=== PATIENT | female | born 1945 | race Caucasian/White ===

== ENCOUNTER 2025-01-17 01:55 | Inpatient (IN) | payer MEDICARE, SELFPAY ==
[2025-01-16 18:56] VITALS: BP 122/77
[2025-01-16 19:28] LABS: Hematocrit 37.5 % (37.0-47.0); Hemoglobin 11.9 g/dL (12.0-16.0); Mean Corp Hgb Conc. 31.7 g/dL (33.0-37.0); Mean Corpuscular Volume 88.4 fL (81.0-99.0); Nucleated Red Blood Cells % 0 %; Platelet Count 279 10^3/uL (130-400); Red Cell Dist. Width 15.0 % (11.5-14.5)
[2025-01-16 19:44] LABS: ALT (SGPT) 11 U/L (0-35); AST (SGOT) 15 U/L (14-36); Albumin 3.9 g/dl (3.5-5.0); Alkaline Phosphatase 109 U/L (38-126); Blood Urea Nitrogen 21 mg/dl (7-17); Calcium 9.6 mg/dl (8.4-10.2); Carbon Dioxide 26 mmol/L (22-30); Chloride 100 mmol/L (98-107); Glucose 154 mg/dl (70-99); Lipase 147 U/L (23-300); Potassium 4.5 mmol/L (3.5-5.1); Sodium 133 mmol/L (135-145); Total Protein 6.9 g/dl (6.3-8.2); eGFR 46.62
[2025-01-16 22:00] VITALS: BP 138/88
[2025-01-16] MEDS: MORPHINE SULFATE 4 MG IV (22:41)
[2025-01-16] MEDS: NSS 500 IV (22:41)
[2025-01-16] MEDS: ZOFRAN 4 MG IV (22:42)
[2025-01-16 22:50] LABS: COVID-19 Antigen Negative (Negative)
[2025-01-16 23:00] VITALS: BP 156/83
[2025-01-16 23:30] VITALS: BP 142/82
--- NOTE | 2025-01-16 23:41 | ED.GENMED ---
History of Present Illness
General
Chief Complaint: Weakness
Source: patient, records (Reviewed records from [facility]) and family
Exam Limitations: none
Time Seen by Provider: 01/16/25 22:04
Nursing documentation reviewed up to this point in time: agreed with
History of Present Illness
History of Present Illness:
79-year-old female with a past medical history of hypertension, hyperlipidemia, atrial fibrillation on Eliquis, distant history of gastric bypass surgery, prior history of cholecystectomy, prior prior history of breast cancer status postlumpectomy
who presents to the emergency department with her daughter for evaluation of abdominal pain. Symptoms have been ongoing it sounds like 4 weeks but worsening over the past 3 days. She has been in and out of the hospital over the past few weeks
since onset of her symptoms. To describe her symptoms today�she describes pain in the epigastrium radiates diffusely. Associated with nausea and multiple episodes of vomiting. Denies any diarrhea. She has had poor appetite. No fever or chills.
No urinary symptoms. Denies chest pain. Daughter is at bedside and helps provide some collateral history about her recent hospitalizations:
It sounds that she was initially hospitalized at [facility] after a syncopal event and at that time was found to have new onset atrial fibrillation and was started on metoprolol and Eliquis. About a week later (12/28) she presented
to [facility] with epigastric pain. At that time she had imaging initially there was question of gastric ulcer noted on CT but she was also noted to have abnormal LFTs. She underwent subsequent MRI which showed dilated bile ducts but
no choledocholithiasis, LFTs improved. Based on notes it sounds like the consensus was for her symptoms likely related to a passed biliary stone however she was also treated with PPI. She had a marginally elevated troponin during her initial
hospitalization that was felt to be nonischemic per cardiology review.
She subsequently returned with continued abdominal pain 01/03 3 days after her discharge. At that time her LFTs continue to improve, troponin remained marginally elevated and she underwent cardiac cath which showed no obstructive disease and it was
felt that symptoms were noncardiac. She was treated with PPI and sucralfate and was discharged from the hospital after 3 more days.
Daughter says that since returning home she has never had resolution of symptoms but increasing symptoms over the past 3 days prompted ER visit jose luis says that they are unhappy with the care at [facility] which prompted her to come to
[place] despite never having been to this hospital
Review of Systems
Review of Systems
All Other Systems: ROS reviewed and negative except as documented in HPI and ROS
Constitutional: Denies fever or chills
Respiratory: Denies trouble breathing
Cardiac: Denies chest pain
ABD/GI: Reports abdominal pain, nausea and vomiting; Denies diarrhea
: Denies dysuria or flank pain
Musculoskeletal: Denies neck pain or back pain
Neurological: Reports dizzy; Denies headache
Phy Exam
Physical Exam
Physical Exam:
General: Awake, alert, oriented x3; appears uncomfortable
Head: Normocephalic, atraumatic
Eyes: Conjunctiva normal, sclera anicteric
Throat: Airway intact, mucous membranes slightly dry
Neck: Trachea midline, supple without meningismus
Lungs: Breathing comfortably not in any distress, lungs sound clear bilaterally
Heart: Regular rate and rhythm, no murmurs, gallops, or rubs
Abd: Soft, non distended, diffusely tender to palpation maximal in the epigastrium with no peritoneal signs
Neuro: Grossly intact
Skin: Warm and dry, poor turgor
Extremities: No edema in extremities, warm and well-perfused
Scores
Heart Failure Risk
Heart Failure Risk Score: Not Applicable
Heart Score for Chest Pain Patients
STEMI patient?: Not applicable
Withdrawal Assessment of Alcohol
Withdrawal Assessment Completed?: Not applicable
Course
Orders/Labs/Results
Orders:
Orders
01/16/25 19:12
Complete Blood Count/With Diff Urgent
Comprehensive Metabolic Panel Urgent
Lipase Urgent
01/16/25 22:05
Electrocardiogram (*1) Urgent
Reason for Study: Tachycardia
EKG- Treatment ONCE
Urinalysis Reflex To Culture Urgent
01/16/25 22:12
COVID-19 Antigen Urgent
Source: Nasal Swab
Influenza A+B Rapid Molecular Urgent
DEVONTE Source: Nasal Swab
Specimen Description:
01/16/25 22:37
0.9% Sodium Chloride 500 ml [Nss] 500 ml IV BOLUS
Morphine Sulfate 4 mg IV NOW STA
Ondansetron Injectable [Zofran] 4 mg IV NOW STA
01/16/25 23:36
CT Abd/pelvis W Iv Cont Urgent
Comment:
Reason For Exam: abdominal pain
01/17/25 00:40
HYDROmorphone [Dilaudid] 0.5 mg IV NOW STA
Mag Hydrox/Al Hydrox/Simeth [Maalox] 30 ml Phenobarb/Hyoscy/Atropine/Scop [] 10 ml Viscous Lidocaine 2% [Xylocaine Viscous Cup] 10 ml PO NOW
Pantoprazole [Protonix IV] 40 mg IV NOW STA
01/17/25 00:45
Blood Culture Q30M
DEVONTE Source: Blood/Venous
Specimen Description:
01/17/25 00:53
Mag Hydrox/Al Hydrox/Simeth [Maalox] 30 ml .ROUTE .STK-MED ONE
Phenobarb/Hyoscy/Atropine/Scop [] 10 ml .ROUTE .STK-MED ONE
01/17/25 00:54
Viscous Lidocaine 2% [Xylocaine Viscous Cup] 15 ml .ROUTE .STK-MED ONE
01/17/25 01:15
Blood Culture Q30M
DEVONTE Source: Blood/Venous
Specimen Description:
Abnormal Lab Results
01/16/25
19:12
WBC 15.0 H 10^3/uL
(4.8-10.8)
Hgb 11.9 L g/dL
(12.0-16.0)
MCHC 31.7 L g/dL
(33.0-37.0)
RDW 15.0 H %
(11.5-14.5)
MPV 10.9 H fL
(7.4-10.4)
Abs Immat Gran (auto) 0.1 H 10^3/uL
(0-0.05)
Absolute Neuts (auto) 12.9 H 10^3/uL
(1.4-6.5)
Absolute Monos (auto) 0.7 H 10^3/uL
(0.1-0.6)
Neutrophils % 86.0 H %
(42.2-75.2)
Lymphocytes % 7.9 L %
(20.5-51.1)
Sodium 133 L mmol/L
(135-145)
BUN 21 H mg/dl
(7-17)
Creatinine 1.2 H mg/dL
(0.6-1.0)
Glucose 154 H mg/dl
(70-99)
01/16/25 19:12
01/16/25 19:12
Vital Signs
Initial and Last Documented VS:
Initial Vital Signs
Temp Pulse Resp BP Pulse Ox
36.8 C 113 16 122/77 98
01/16/25 18:56 01/16/25 18:56 01/16/25 18:56 01/16/25 18:56 01/16/25 18:56
Last Documented Vital Signs
Temp Pulse Resp BP Pulse Ox
36.8 C 103 18 138/88 100
01/16/25 18:56 01/16/25 22:00 01/16/25 22:00 01/16/25 22:00 01/16/25 23:47
MDM/Problems Addressed
Differential Diagnosis Includes:
Gastritis, PUD, choledocholithiasis, pancreatitis, enteritis, bowel obstruction
MDM/Problems Addressed:
79-year-old female presents to the ER for continued and worsening abdominal pain�had 2 recent admissions at [facility] as noted above. Symptoms felt to be some combination of PUD and passed biliary stone. She is tachycardic but otherwise normal
vitals here. Physical exam as above. Chart from [facility] reviewed and records scanned in here. Low suspicion that these are anginal equivalent symptoms and she had recent cath which was reassuring. Labs in triage here were significant for
leukocytosis, JAVID with creatinine of 1.2. LFTs are normal here. Lipase is normal. Plan to check CT abdomen. Treat symptomatically. Provide IV fluids. Reassess after the above.
CT called back by: Dilated biliary duct with no obstruction noted and LFTs are normal today. She has thickening of the wall of the stomach and gastrojejunostomy with adjacent fat stranding consistent with gastritis. There is also a small ulcer
near the gastrojejunostomy. No other acute abnormalities noted. Overall suspect symptoms are from ulcer and gastritis. Given IV PPI, pain medication, antiemetic here but still significantly symptomatic and not tolerating p.o. Will admit for
continued care. Discussed with hospitalist for admission.
*Radiology
Radiology exam reviewed: radiology read reviewed
*Pulse Oximetry
SaO2: 100
Nasal Cannula flow liters per minute: 2
Oxygen Mode of Delivery: Room air
Patient hypoxic: no (100%)
*Critical Care Note
Total Time (30-74mins, 75-104mins- exclusive of procedures): Not Applicable
Data Reviewed
Review of Other/Old Records Reveals: Records
Source: patient, records (Reviewed external records from [facility] provided by daughter) and family
Patient Management
Discussion with other providers: Hospitalist (Discussed with hospitalist) and Radiologist (Discussed with radiology)
Escalation/DeEscalation of care consider admission/obs:
Admission indicated
ED Attending Note
-
Portions of this chart may have been created with voice recognition software.� Occasional wrong word or��sound alike� substitutions may have occurred due to the inherent limitations of voice recognition software.
Discharge Plan
Departure
Patient Disposition: Admit
Date of Disposition: 01/17/25
Time of Disposition: 01:04
Admit to doctor: Pete
Presentation/result/management discussed w/ accepting MD/DO: Hospitalist
Discharge Problem:
Gastritis, Gastric ulcer
Referrals:
Sergio Morris DO [Family Provider, Family Practice]
Interventions
Interventions:
*Risk Screen - Suicide Last Done: 01/16/25 18:53
*General Assessment Last Done: 01/16/25 18:56
*Neglect/Abuse Screening Last Done: 01/16/25 18:53
*ED COVID-19 Vaccine History Last Done: 01/16/25 18:56
*ED Influenza Vaccine History Last Done: 01/16/25 18:56
[facility] Risk Assessment Tool Last Done: 01/16/25 22:30
ED- Pulmonary Assessment Last Done: 01/16/25 22:28
ED- Neurological Assessment Last Done: 01/16/25 22:28
ED- Cardiac Assessment Last Done: 01/16/25 22:28
Discharge Date and Time
Print Language: NORTHERN IRISH
[2025-01-17] VITALS (64 sets, daily range): BP systolic 49–183; BP diastolic 37–119; BMI 24.9; BMI 24.3
[2025-01-17] MEDS: PROTONIX IV 40 MG IV ×2 (00:58→19:51)
[2025-01-17] MEDS: DILAUDID 0.5 MG IV (01:01)
[2025-01-17] MEDS: MAALOX 50 PO (01:03)
--- NOTE | 2025-01-17 02:06 | HPS.HSE ---
Addendum entered and electronically signed by Francisco Freeman MD 01/26/25 15:12:
Allergies
Allergy/AdvReac Type Severity Reaction Status Date / Time
No Known Allergies Allergy Verified 01/16/25 19:07
Home Medications
apixaban 5 mg tablet (Eliquis) 5 mg PO BID Blood Clot Prevention/Tx 01/17/25
denosumab 60 mg/mL subcutaneous syringe (Prolia) 60 mg SC [id number] OSTEOPOROSIS 01/17/25
empagliflozin 10 mg tablet (Jardiance) 10 mg PO DAILY Heart Disease/Condition 01/17/25
letrozole 2.5 mg tablet 2.5 mg PO DAILY Hormonal Agent 01/17/25
oxycodone 5 mg tablet 5 mg PO BIDPRN PRN severe pains 01/17/25
pantoprazole 40 mg tablet,delayed release 40 mg PO DAILY Gastrointestinal Issue 01/17/25
rosuvastatin 20 mg tablet 20 mg PO DAILY High Cholesterol 01/17/25
digoxin 125 mcg (0.125 mg) tablet 125 mcg PO NOON #30 tabs 01/21/25
lidocaine 5 % topical patch 1 patch topical DAILY #30 ea 01/21/25
metoprolol succinate 50 mg tablet,extended release 24 hr 50 mg PO DAILY #30 tabs 01/21/25
pantoprazole 40 mg tablet,delayed release (Protonix) 40 mg PO BID #60 tabs 01/21/25
sucralfate 100 mg/mL oral suspension 1 g (10 mL) PO QID #400 mL 01/21/25
Addendum entered and electronically signed by Francisco Freeman MD 01/17/25 05:59:
Reviewed Mathews with team at [facility] which she has at bedside
Left heart catheterization on 01/06/2025. Nonobstructive disease
Became tachycardic hypotensive. EKG demonstrating widened QRS with some J-point elevations.
Check troponin. Cardiology consult
IV fluids hold antihypertensives
Original Note:
Family Physician
-
Family Physician: Sergio Morris
Chief Complaint
-
abdominal pain
History of Present Illness
79 female with a past medical history of hypertension hyperlipidemia atrial fibrillation and is a bit of a wandering historian who has had several weeks of abdominal pain associated nausea. Poor p.o. intake. Last thing she ate was approximately 2
days ago which was toast and jelly. Abdominal pain is epigastric radiates diffusely, intermittent with times when her abdominal pain increases with intensity, sharp. Last vomiting episode was earlier today liquid clear. No diarrhea reported.
Should be noted she has been worked up at other facilities for this abdominal pain. She states that approximately 4 weeks ago was at [facility] where she was admitted for syncope found to have atrial fibrillation and started on anticoagulation.
Since then has had ongoing abdominal pain Isauro. Was seen at [facility] 2 times in the past 2 weeks. Suspected peptic ulcer disease and a passed stone for the first visit and the second visit had a left heart catheterization which did not
demonstrate obstructive disease. At that time she was discharged home with PPIs and Carafate.
Medical History
Past Medical History
Past Medical History: Reports Arrhythmia, GERD and HTN
Past Surgical History: Reports Bowel Resection
Social History
Alcohol: None
Family History
Family History: Not pertinent
Allergies / Home Medications
Allergies reflects when Allergies were last updated in [employer].
Home Medications with original date entered in [employer]
Allergy/Medication List:
Allergies
Allergy/AdvReac Type Severity Reaction Status Date / Time
No Known Allergies Allergy Verified 01/16/25 19:07
Review of Systems
-
A 12 point ROS was completed and negative except as noted: Yes
Physical Exam
Vital Signs
Vital Signs
Temp Pulse Resp BP Pulse Ox
98.2 F 114 17 116/76 95
01/16/25 18:56 01/17/25 01:15 01/17/25 01:15 01/17/25 01:00 01/17/25 01:15
Physical Exam
General: No Apparent Distress and Comfortable
HEENT: NormoCephalic and Anicteric
Respiratory: Clear
Cardiac: S1/S2 and Regular Rhythm
GI: Soft, Non Tender, Non Distended and Normal Bowel Sounds
Musculoskeletal: No Clubbing and No Cyanosis
Skin: Warm and Dry
Neuro: Awake, Alert, AO x 3 and Other (poor hisotrian)
Laboratory Results
-
01/16/25 19:12
01/16/25 19:12
Laboratory Results
Total Bilirubin 0.7 mg/dl (0.2-1.3) 01/16/25 19:12
AST 15 U/L (14-36) 01/16/25 19:12
ALT 11 U/L (0-35) 01/16/25 19:12
Alkaline Phosphatase 109 U/L (38-126) 01/16/25 19:12
Lipase 147 U/L (23-300) 01/16/25 19:12
Impression/Plan
-
Abdominal pain and associated nausea
-Suspect related to peptic ulcer disease versus gastritis or could even be acute conversion disorder as it would appear that she was previously on appropriate treatment but this is a diagnosis of exclusion. Gastroparesis.
IV fluids
PPI drip
Carafate
Clear liquid diet
As this has been ongoing for 3 to 4 weeks will consult GI for EGD consideration
GI consult
CKD stage IIIa
From previous documentation from allan Renner appears that baseline creat 1.4
Avoid nephrotoxins hypotension
Monitor urinary output
Hyponatremia
IV fluids with normal saline
Repeat BMP in the morning
If not improving then would obtain renal urine studies
Leukocytosis 15 without evidence of acute infectious process
Afebrile
Monitor repeat labs in the morning
Monitor off of antibiotics
If develops fever or worsening white count consider antibiotics cultured at that time
Breast cancer
Outpatient follow-up
History of peptic ulcer disease
Continue PPIs
Please complete med rec in the AM
[2025-01-17] MEDS: NSS 1000 IV ×4 (02:44→10:16)
[2025-01-17] MEDS: PROTONIX 100 IV ×2 (02:55→12:44)
[2025-01-17 05:32] LABS: Hematocrit 32.2 % (37.0-47.0); Hemoglobin 10.2 g/dL (12.0-16.0); Mean Corp Hgb Conc. 31.7 g/dL (33.0-37.0); Mean Corpuscular Volume 89.9 fL (81.0-99.0); Platelet Count 199 10^3/uL (130-400); Red Cell Dist. Width 15.2 % (11.5-14.5)
[2025-01-17 05:37] LABS: Blood Urea Nitrogen 22 mg/dl (7-17); Calcium 8.3 mg/dl (8.4-10.2); Carbon Dioxide 24 mmol/L (22-30); Chloride 106 mmol/L (98-107); Glucose 122 mg/dl (70-99); Magnesium 2.2 mg/dl (1.6-2.3); Potassium 3.9 mmol/L (3.5-5.1); Sodium 137 mmol/L (135-145); eGFR 42.35
[2025-01-17 05:50] LABS: Troponin I 0.042 ng/ml
--- NOTE | 2025-01-17 06:12 | W.PN.UPDATE ---
Update Note
Progress Note Update
RN reported HR 140's BP soft 80's-90's/60's-70's. EKG noted. Labs ordered. Afebrile
patient seen, Oriented, poor historian, reported having 'stabbing' chest pain at left chest, and that its been going on for two weeks. Denies shortness of breath
Lungs diminished, HR tachy, regular. now HR 150's, did not come down with Vasovagal maneuver
[employer] made aware. Advised to address this matter to four h agent
[facility] System Engineer consulted. EKG, old cath results send.
Advised vasovagal maneuver, Adenosine 6mg, 12 mg
Adenosine 6mg, 12mg administered without any response. BP 108/65 HR 155
System Engineer made aware.
Advised to keep patient in ER at present, EP should be seeing patient in AM
Patient is awake, responding to nurses. charge nurse, nursing splicing supervisor, [employer] made aware.
[2025-01-17] MEDS: ADENOCARD 6 MG IV (06:38)
--- NOTE | 2025-01-17 06:51 | CON.GI ---
Addendum entered and electronically signed by Duke Lockett MD 01/17/25 09:57:
Patient seen and examined, agree with nurse practitioner note. The patient is a 79-year-old female with complex past medical history as noted who presents with abdominal pain. She has had several hospitalizations with syncope, hypotension, with
A-fib/flutter. She had a negative cath for luminal disease by report. She was hospitalized at [facility] and by report had an endoscopy though we do not have those for review yet. She did have noticed elevated LFTs, and a marked
necroinflammatory pattern, though had resolved, with negative MRCP, likely secondary to low flow from her hypotension. She now relates some substernal chest discomfort/epigastric discomfort. This is not worse with eating has been eating well.
This discomfort is definitely worse when she has her syncopal episodes. She did have some mild left lower quadrant discomfort as well, though no melena or hematochezia. She is followed with GI at [facility] in the past, and does have history of
previous anastomotic ulcer. On exam now she has some minimal epigastric tenderness and left lower quadrant tenderness though no rebound or guarding. Her hemoglobin is stable at baseline.
1. Epigastric pain: I think it is likely more related to her tachycardia and arrhythmia given worse around the times of her syncope, without any relationship to eating. CAT scan suggests anastomotic ulcer, though does have a history of anastomotic
ulcer and this could be chronic. It is reassuring that she has no gross bleeding now, and by report had EGD at [facility] though I do not have that for review yet. MRI was negative for CBD stone, and elevated LFTs in the past likely from
hypotension and low flow. At this point would continue PPI twice daily and close observation. If cardioversion is needed given her persistent tachycardia with hypotension then that takes precedence, even if anticoagulation long-term is needed.
She has tolerated heparin so far and again has not had any gross bleeding, and likely chronic ulcer. We will again try to get records from [facility] to help further clarify this.
Original Note:
Consultation
-
Date/Time Consultation Requested: 01/17/25 5240
Date/Time Consultation Performed: 01/17/25 0700
Requesting Provider: Francisco Freeman MD
Performing Provider: ROMÁN Hsieh, Chris Lockett MD
Reason for Consultation: abdominal pain
Medical History
Chief Complaint / HPI
Chief Complaint: weakness
History of Present Illness:
Pt is a 79yo with hx breast CA with prior mastectomy, radiation , HTN, hyperlipidemia, CVA, colon polyps, pancreatic atrophy per imaging, CAD with prior CABG,bioprosthetic AVR, NIDDM, gastric bypass- cristiana en y with prior anatomic ulcer with
several recent admission to [facility]. She was noted with hypotension, syncope, PAF (on Eliquis but only took 2 doses last dose 2 weeks ago), completed cardiac work up with recent cath with noted elevated troponin. she
was also noted with abnormal renal function and increased LFT's with concern for passed gallstone with noted prior CT and MRI with concern for thickening at GJ anastomosis with possible ulcer and severe intra and extra hepatic biliary dilation but
no choledocholithiasis. She also report recent EGD? [facility] but report not reviewed. She now presents to with continued weakness, near syncope, chest and abdominal pain.
In review with patient she admits to ongoing symptoms for last few weeks with some scattered history. She reports initial eval at [facility] as she passed out in [place] then later follow up x 2 at [facility] with multiple test but unable
to give details. She now returns with continued weakness. After admission noted with rapid aflutter in ER with HR in 140's with hypotension with BP's down to 80's. She admit to new odynophagia that just stated. She admits to decreased appetite
with not eating much for several days and vomiting liquid emesis a few days ago. She states she chest, upper abdomen and mid abdominal pain. Pain is constant difficulty to say what makes better or worse. + wt loss 15 lbs last few weeks. She was
also noted recent constipation with small amount of red blood in stools but denies black stools. Labs on admission with WBC 15,000, hbg 11.9 with prior range 11-12., 12/30 iron 28, TIBC 283, transferrin 202, bili 0.7, AST 15, ALT 11, alk phos 109
(12/29- bili 2.7, AST 1436, ALT 447, alk phos 431, 12/30- bili 1, AST 309, ALT 413, alk phos 348). Denies NSAID use. Last colonoscopy within last few years.
12/28/24 - [facility]- CT chst/ad/pelvis with IV coronary calcification, calcification of mitral valve annulus, scattered low attenuation hepatic lesions, s/p ema, stable biliary dilatation T/c MRI, pancreas stable, nodular thickening adrenal gland,
horseshoe kidney, suboptimal gastric and bowel without contrast no SBO cristiana en y bypass,mild wall thickening/edema at gastrojejunal anastomosis clinical query for marginal ulcer, hysterectomy, no ascites or free air, degenerative changes and bone
demineralization, prior sternotomy, old rib fx partial visualized with femoral jocelyn and screw
12/30/24- [facility] MRI abdomen with and without severe intrahepatic and extrahepatic biliary ductal dilatation, no choledocholithiasis non specific, horseshoe kidney
01/04/25- [facility] cath well compensated CAD with patent bypass graft to LAD and RCA several minor branch vessels of cirumflex territory are collateralized with do not receive flow with bypass best served with medical therapy normal bioprosthetic valve,
normal left heart cath pressure no .
01/17- CT A/p vision report ema, prominent dilated CBD up to 2 cm tapering slightly to 1.2 cm near ampulla with moderate intrahepatic biliary ductal dilation possible post ema changes. Pancreas mild diffuse atrophy, gastric bypass with wall
thickening of stomach and gastrojejunostomy with adjacent fat standing concerning for gastritis with appearance of small ulcer projecting superiorly at GJ junction. No abscess or free air no bowel obstruction. mild sigmoid diverticulosis without
diverticulitis. appe, Unremarkable adrenal ans spleen. Horseshoe kidney no hypo in b/l renal moieties. areas of cortical scarring without b/l rnal moieties. bladder partially distended and unremarkable. hysterectomy, prominent vascular
calcification, no AAA or dissection, femur jocelyn, moderate DDD
Past Medical History
Past Medical History: Arrhythmias (afib ), Cancer (breast CA, mastectomy/radiation on letrozole), CVA (age 45), HTN, Hypercholesterolemia, NIDDM and Other ( GI bleed from anastomic ulcer, syncope, pancreatic atrophy, colon polyps)
Past Surgical History: Cardiac (CABG, bioprosthetic AVR), Cholecystectomy, Orthopedic (femor fx with repair ) and Other (gastric bypass 20 years ago)
Social History
Tobacco: Other (few cigarettes many years ago )
Alcohol: None
Drug: None
Personal:
Living: With Family
Employment: Retired
Family History
Family History: Other (denies family hx GI maligancy )
Allergies / Home Medications
Allergy/AdvReac Type Severity Reaction Status Date / Time
No Known Allergies Allergy Verified 01/16/25 19:07
�Medication �Instructions �Recorded
Jardiance 10 mg 1XD 01/17/25
Vitamin B-12 1,000 mcg 1XD 01/17/25
Vitamin D2 1,250 mcg 1XD 01/17/25
apixaban 5 mg tablet (Eliquis) 5 mg PO BID 01/17/25
cefuroxime axetil 500 mg tablet 500 mg 2XD 01/17/25
denosumab 60 mg/mL subcutaneous 60 mg SC [id number] 01/17/25
syringe (Prolia)
letrozole 2.5 mg tablet 2.5 mg 1XD 01/17/25
metoprolol tartrate 25 mg tablet 25 mg 1XD 01/17/25
pantoprazole 40 mg tablet,delayed 40 mg PO 1XD 01/17/25
release
rosuvastatin 20 mg tablet 20 mg 1XD 01/17/25
sucralfate 1 gram tablet 1 g 4XD 01/17/25
venlafaxine 75 mg tablet 75 mg 3XD 01/17/25
Review of Systems
-
History Source: Patient
Constitutional: Reports Weight Loss
EENT: Reports Sore Throat (with odynophagia )
Cardiac: Reports Palpitations and Syncope
Abdomen/GI: Reports Nausea, Vomiting, Constipated and Bloody Stools
: Reports No Symptoms
Musculoskeletal: Reports Edema
Skin: Reports No Symptoms
Neurological: Reports Dizzy and Weakness
Endocrine: Reports No Symptoms
Hematologic/Lymphatic: Reports Bleeding
Vital Signs
Temp Pulse Resp BP Pulse Ox
98.3 F 146 16 100/66 96
01/17/25 03:00 01/17/25 05:45 01/17/25 05:07 01/17/25 05:45 01/17/25 05:45
Physical Exam
Exam
General: No Apparent Distress and Other (awake and conversant )
HEENT: Normocephalic and Anicteric
Respiratory: Clear
Cardiac: Other (rapid rate with some irregularity aflutter on monitor)
Breast: Deferred by me
GI: Soft and Tender (mid abdomen with mild guarding )
Rectal: Deferred by Provider (current rapid aflutter with cards at bedside )
Musculoskeletal: No Clubbing and No Cyanosis
Skin: Warm and Dry
Neuro: Awake, Alert and AO x 3 (some forgetfulness to history )
Psych: Calm
Results
WBC 11.2 10^3/uL (4.8-10.8) H 01/17/25 04:55
Hgb 10.2 g/dL (12.0-16.0) L 01/17/25 04:55
Hct 32.2 % (37.0-47.0) L 01/17/25 04:55
MCV 89.9 fL (81.0-99.0) 01/17/25 04:55
Plt Count 199 10^3/uL (130-400) D 01/17/25 04:55
Absolute Neuts (auto) 12.9 10^3/uL (1.4-6.5) H 01/16/25 19:12
Sodium 137 mmol/L (135-145) 01/17/25 04:55
Potassium 3.9 mmol/L (3.5-5.1) 01/17/25 04:55
Chloride 106 mmol/L (98-107) 01/17/25 04:55
Carbon Dioxide 24 mmol/L (22-30) 01/17/25 04:55
BUN 22 mg/dl (7-17) H 01/17/25 04:55
Creatinine 1.3 mg/dL (0.6-1.0) H 01/17/25 04:55
Calcium 8.3 mg/dl (8.4-10.2) L 01/17/25 04:55
Total Bilirubin 0.7 mg/dl (0.2-1.3) 01/16/25 19:12
AST 15 U/L (14-36) 01/16/25 19:12
ALT 11 U/L (0-35) 01/16/25 19:12
Alkaline Phosphatase 109 U/L (38-126) 01/16/25 19:12
Lipase 147 U/L (23-300) 01/16/25 19:12
Diagnostic Image Results:
12/28/24 - [facility]- CT chst/ad/pelvis with IV coronary calcification, calcification of mitral valve annulus, scattered low attenuation hepatic lesions, s/p ema, stable biliary dilatation T/c MRI, pancreas stable, nodular thickening adrenal gland,
horseshoe kidney, suboptimal gastric and bowel without contrast no SBO cristiana en y bypass,mild wall thickening/edema at gastrojejunal anastomosis clinical query for marginal ulcer, hysterectomy, no ascites or free air, degenerative changes and bone
demineralization, prior sternotomy, old rib fx partial visualized with femoral jocelyn and screw
12/30/24- [facility] MRI abdomen with and without severe intrahepatic and extrahepatic biliary ductal dilatation, no choledocholithiasis non specific, horseshoe kidney
01/04/25- [facility] cath well compensated CAD with patent bypass graft to LAD and RCA several minor branch vessels of cirumflex territory are collateralized with do not receive flow with bypass best served with medical therapy normal bioprosthetic valve,
normal left heart cath pressure no .
01/17- CT A/p vision report ema, prominent dilated CBD up to 2 cm tapering slightly to 1.2 cm near ampulla with moderate intrahepatic biliary ductal dilation possible post ema changes. Pancreas mild diffuse atrophy, gastric bypass with wall
thickening of stomach and gastrojejunostomy with adjacent fat standing concerning for gastritis with appearance of small ulcer projecting superiorly at GJ junction. No abscess or free air no bowel obstruction. mild sigmoid diverticulosis without
diverticulitis. appe, Unremarkable adrenal ans spleen. Horseshoe kidney no hypo in b/l renal moieties. areas of cortical scarring without b/l rnal moieties. bladder partially distended and unremarkable. hysterectomy, prominent vascular
calcification, no AAA or dissection, femur jocelyn, moderate DDD
Prior GI Procedures:
EGD: ? recently done at [facility]
Colonoscopy: last few years with hx polyps
Assessment / Plan
-
Pt is a 79yo with hx breast CA with prior mastectomy, radiation , HTN, hyperlipidemia, CVA, colon polyps, pancreatic atrophy per imaging, CAD with prior CABG,bioprosthetic AVR, NIDDM, gastric bypass- cristiana en y with prior anatomic ulcer with
several recent admission to [facility]. She was noted with hypotension, syncope, PAF (on Eliquis but only took 2 doses last dose 2 weeks ago), completed cardiac work up with recent cath with noted elevated troponin. she
was also noted with abnormal renal function and increased LFT's with concern for passed gallstone with noted prior CT and MRI with concern for thickening at GJ anastomosis with possible ulcer and severe intra and extra hepatic biliary dilation but
no choledocholithiasis. She also report recent EGD? [facility] but report not reviewed. She now presents to with continued weakness, near syncope, chest and abdominal pain. Pt also admits to odynophagia, constipation, rectal bleeding, wt
loss and abdominal pain. Labs on admission with WBC 15,000, hbg 11.9 with prior range 11-12., 12/30 iron 28, TIBC 283, transferrin 202, bili 0.7, AST 15, ALT 11, alk phos 109 (12/29- bili 2.7, AST 1436, ALT 447, alk phos 431, 12/30- bili 1,
AST 309, ALT 413, alk phos 348). Denies NSAID use. Last colonoscopy within last few years.
12/28/24 - [facility]- CT chst/ad/pelvis with IV coronary calcification, calcification of mitral valve annulus, scattered low attenuation hepatic lesions, s/p ema, stable biliary dilatation T/c MRI, pancreas stable, nodular thickening adrenal gland,
horseshoe kidney, suboptimal gastric and bowel without contrast no SBO cristiana en y bypass,mild wall thickening/edema at gastrojejunal anastomosis clinical query for marginal ulcer, hysterectomy, no ascites or free air, degenerative changes and bone
demineralization, prior sternotomy, old rib fx partial visualized with femoral jocelyn and screw
12/30/24- [facility] MRI abdomen with and without severe intrahepatic and extrahepatic biliary ductal dilatation, no choledocholithiasis non specific, horseshoe kidney
01/17- CT A/p vision report ema, prominent dilated CBD up to 2 cm tapering slightly to 1.2 cm near ampulla with moderate intrahepatic biliary ductal dilation possible post ema changes. Pancreas mild diffuse atrophy, gastric bypass with wall
thickening of stomach and gastrojejunostomy with adjacent fat standing concerning for gastritis with appearance of small ulcer projecting superiorly at GJ junction. No abscess or free air no bowel obstruction. mild sigmoid diverticulosis without
diverticulitis. appe, Unremarkable adrenal ans spleen. Horseshoe kidney no hypo in b/l renal moieties. areas of cortical scarring without b/l rnal moieties. bladder partially distended and unremarkable. hysterectomy, prominent vascular
calcification, no AAA or dissection, femur jocelyn, moderate DDD
-concern for near syncope with aflutter with rapid rate with hypotension on admission
-abdominal pain with mild guarding
-CT with concern for anastomotic ulcer-- ? recent EGD completed
-recent LFT elevation with neg MRI for stone with biliary dilatation
-leukocytosis
-recent wt loss
-constipation
other med problems:
breast CA with prior mastectomy, radiation , HTN, hyperlipidemia, CVA, colon polyps, pancreatic atrophy per imaging, CAD with prior CABG,bioprosthetic AVR, NIDDM, gastric bypass- cristiana en y
PLAN
Etiology of abdominal pain with concern for anatomic ulcer -- pt report possible recent EGD at [facility]
I requested records
reviewed with cardiology and will review with Dr. Lockett as pt may need cardioversion
ok for heparin gtt with close monitoring if needed from cardiology
NPO
current PPI gtt
cont Carafate
IVF
t/c eventual EGD but currently unstable to proceed
trend hbg
trend LFT's ? prior elevation shock liver with hypotension vs passed stone
cont Miralax, senna PRN with recent constipation
-
-
Thank you for consultation and allowing me to participate in the patient's care. Please call the container washer machine GI physician during the after hours with any questions or concerns.
[2025-01-17] MEDS: CARAFATE SUSPENSION 1 GM PO ×4 (07:36→19:51)
--- NOTE | 2025-01-17 08:20 | W.PN.HOSP.TC ---
Today's Communication/Plan
-
see plan
Assessment / Plan
Assessment / Plan
Gen: NAD, AAOx3.
Eyes: EOMI, PERRLA, no scleral icterus.
Neck: supple.
CV: tachy, reg rhythm, +S1/S2, no m/r/g.
Resp: CTAB, no rales, wheezes, or rhonchi.
Abd: +BS, soft, NT, ND
Skin: No rashes.
Neuro: CN 2-12 intact, non-focal.
Psych: Normal mood and affect.
Tachycardia:
-called to bedside urgently by RN
-pt given Adenosine x 2 without resolution of tachycardia prior to my arrival
-ECG reviewed with cardiology, currently aflutter with RVR
-noncompliant with Eliquis
-s/p 2L NS, will give a 3rd L NS
-check echo
-ideally pt should have TEECV. Case discussed with Dr. Chavez. For now NPO, heparin gtt, GI eval, possible TEECV later today.
Abdominal pain and associated nausea:
-for 3-4 weeks
-PUD vs gastritis vs acute conversion disorder
-GI c/s
-cont IVFs, PPI gtt, carafate
-may need EGD
Other problems:
CKD3a
Hyponatremia, resolved
Leukocytosis, improving, likely reactive
h/o Breast CA
PUD: currently on PPI gtt
Of note patient has been to multiple hospitals recently and I have encouraged the patient to pick 1 health system and stick with it.
Upgrade to IMU (going to ICU as overflow)
Total critical care time spent = 38 min
Anticipated Discharge: > 48 hours
Subjective/Interval History
-
Date of Service: January 17, 2025
Patient currently reports pleuritic, left-sided, point chest pain that is sharp in nature. Reports shortness of breath (although does not appear at all short of breath), and abdominal pain.
Objective Data
-
Labs:
Laboratory Results
01/17/25
04:55
WBC 11.2 H
Hgb 10.2 L
Hct 32.2 L
Plt Count 199 D
Sodium 137
Potassium 3.9
Chloride 106
Carbon Dioxide 24
BUN 22 H
Creatinine 1.3 H
Glucose 122 H
Calcium 8.3 L
Total Bilirubin Pending
AST Pending
ALT Pending
Alkaline Phosphatase Pending
Vital Signs:
Vital Signs
Temp Pulse Resp BP Pulse Ox
98.3 F 141 16 99/57 95
01/17/25 03:00 01/17/25 07:45 01/17/25 05:07 01/17/25 07:45 01/17/25 07:15
--- NOTE | 2025-01-17 08:28 | CON.CAR ---
Addendum entered and electronically signed by Wilfredo Chavez MD 01/17/25 10:54:
I saw and examined the patient independently and performed majority of MDM.
The PATTERNATOR or PA's note was reviewed and I agree with the note with changes/additions below.
Comment: 79 yo female with paroxysmal A fib, on eliquis, but had missed doses due to feeling unwell, CAD/CABG. Had recent syncope, and admission at [facility]. Wearing extended Holter currently from that admission. Now she presents with
abdominal/epigastric pain, and is found to be in typical atrial flutter with RVR. BP is 90s over 50s, but patient appears stable with tachy, regular pulse, and no murmurs, no edema. EKG shows typical atrial flutter.
Discussed with hospitalist, and GI teams. There is a report of stomach ulcer, and may need procedure in future. But need to get back in sinus, so will be stable for any procedures in future. High risk situation. Will proceed with ROSITA/DCCV today.
Will use heparin drip for AC, with close monitoring of Hgb, and telemetry.
Original Note:
Consultation
Consultation Request
Date/Time Consultation Requested: 01/17/2025 07:50
Date/Time Consultation Performed: 01/17/2025 08:30
Requesting Provider: Dr. Humphries
Performing Provider: ROMÁN Cruz for Dr. Chavez
Reason for Consultation: Tachycardia
Medical History
-
Chief Complaint: Abdominal pain
History of Present Illness:
Talisha Bryant is a 79-year-old female (known to Dr. Duncan Scwhartz, at [place]), with atrial fibrillation/flutter (type unknown, noncompliant with apixaban), coronary artery disease s/p CABG, type 2 diabetes mellitus, not requiring insulin, CKD, and
hypercholesterolemia presented to the emergency department with a chief complaint of abdominal pain. She endorsed associated poor appetite and weakness. She had a recent admission at [facility] after a syncopal episode while shopping. She is currently
wearing an outpatient rn cardiac rehab. During that hospitalization she was diagnosed with atrial fibrillation/flutter. She was started on a beta-yanni and apixaban. She then had continued abdominal pain. She was then evaluated at [facility]. At that institution she underwent echocardiogram, cardiac catheterization, abdominal CT, and abdominal MRI for her symptoms. Cardiology was consulted for atrial flutter. She was given adenosine which did not improve her rhythm.
Systolic blood pressure is currently in the 90s. She denies palpitations, shortness of breath, dizziness, and syncope/presyncope. There is a concern for an ulcer and she may be scoped by GI so anticoagulation is currently on hold. At home, she is
noncompliant with medications. She believes she took her metoprolol succinate 25 mg about 48 hours ago. She endorses only taking 2 doses of apixaban since she filled the prescription.
Past Medical History
Past Medical History: Arrhythmias (Atrial fibrillation/flutter [type unknown]), CAD, Cancer (Breast status post XRT and chemotherapy), GERD, Hypercholesterolemia and Renal Failure (CKD)
Past Surgical History: Cardiac (CABG), Cholecystectomy, Gynecological, Orthopedic, Tonsilectomy and Other (Gastric bypass)
Social History
Tobacco: Non-Smoker
Alcohol: None
Drug: None
Personal:
Living: With Family (With daughter)
Employment: Retired
Family History
Family History: Reviewed & Not Pertinent
Allergies / Home Medications
Allergy/AdvReac Type Severity Reaction Status Date / Time
No Known Allergies Allergy Verified 01/16/25 19:07
�Medication �Instructions �Recorded �Confirmed �Type
Jardiance 10 mg 1XD 01/17/25 01/17/25 History
Vitamin B-12 1,000 mcg 1XD 01/17/25 01/17/25 History
Vitamin D2 1,250 mcg 1XD 01/17/25 01/17/25 History
apixaban 5 mg tablet (Eliquis) 5 mg PO BID 01/17/25 01/17/25 History
cefuroxime axetil 500 mg tablet 500 mg 2XD 01/17/25 01/17/25 History
denosumab 60 mg/mL subcutaneous 60 mg SC [id number] 01/17/25 01/17/25 History
syringe (Prolia)
letrozole 2.5 mg tablet 2.5 mg 1XD 01/17/25 01/17/25 History
metoprolol tartrate 25 mg tablet 25 mg 1XD 01/17/25 01/17/25 History
pantoprazole 40 mg tablet,delayed 40 mg PO 1XD 01/17/25 01/17/25 History
release
rosuvastatin 20 mg tablet 20 mg 1XD 01/17/25 01/17/25 History
sucralfate 1 gram tablet 1 g 4XD 01/17/25 01/17/25 History
venlafaxine 75 mg tablet 75 mg 3XD 01/17/25 01/17/25 History
Review of Systems
-
History Source: Patient
All other systems: Negative unless noted
Constitutional: Fatigue
EENT: No Symptoms
Respiratory: No Symptoms
Cardiac: No Symptoms
Abdomen/GI: Abdominal Pain and Anorexia
: No Symptoms
Musculoskeletal: No Symptoms
Skin: No Symptoms
Neurological: No Symptoms
Endocrine: No Symptoms
Hematologic/Lymphatic: No Symptoms
Physical Exam
Vital Signs
Temp Pulse Resp BP Pulse Ox
98.3 F 141 16 99/57 95
01/17/25 03:00 01/17/25 07:45 01/17/25 05:07 01/17/25 07:45 01/17/25 07:15
Lab Results
01/17/25 04:55
01/17/25 04:55
Troponin I 0.042 ng/ml H* 01/17/25 05:10
Physical Exam
General: Well Developed, Well Nourished, No Apparent Distress and Comfortable
HEENT: Normocephalic, Anicteric and Moist Mucous Membranes
Respiratory: Clear and Non Labored Respirations
Cardiac: S1/S2 and Regular Rhythm (Tachycardia)
Breast: Deferred by me
GI: Soft, Non Tender, Non Distended and Normal Bowel Sounds
Rectal: Deferred by Provider
Genito-urinary: No Costovertebral Tender
Musculoskeletal: No Clubbing, No Cyanosis and No Edema
Skin: Warm and Dry
Neuro: AO x 3
Hematologic/Lymphatic: No Lymphadenopathy
Psych: Calm
Impression / Plan
-
I/P: 79F with atrial fibrillation/flutter (type unknown, noncompliant with apixaban), coronary artery disease s/p CABG, type 2 diabetes mellitus, not requiring insulin, CKD, and hypercholesterolemia presented to the emergency department with a chief
complaint of abdominal pain
Primary elementary school librarian: Dr. Duncan Schwartz ([place])
Atrial flutter, type unknown
- She also has a diagnosis of atrial fibrillation, type unknown
- Currently stuck at 141 bpm, asymptomatic but with hypotension, IV fluid bolus running
- The eventual plan is for rhythm control, currently awaiting GI evaluation
- Start heparin drip, if cardioversion is performed she will need to be on uninterrupted apixaban 5 mg twice daily for 4 weeks
- N.p.o. for possible cardioversion
Abdominal pain
- Concern for ulcer, discussed with GI, hold apixaban, okay for heparin drip from GI perspective
- Prior cholecystectomy
Anemia, type unknown
- Prior gastric bypass, B12 and folate pending
CAD
- Stable without chest pain
- Status post CABG, with cardiac catheterization at [facility] as below
- Aggressive medical management
CKD, per outside records her baseline creatinine is 1.3�1.4
Type 2 diabetes mellitus, per primary service
Prior breast cancer, s/p XRT and chemotherapy
Hypercholesterolemia, rosuvastatin on hold with abdominal pain
SUBJECTIVE:
As above.
DATA:
Transthoracic echocardiogram, 12/29/2024 (Dr. Siddiqui, [facility]):
LVEF 50%. Grade 1 DD.
Mildly dilated LA. Mild aortic valve stenosis. Normal RV systolic function.
Coronary angiography, 01/06/2025 (Dr. Mtz, [facility]):
Well compensated CAD with widely patent bypass grafts to the LAD and RCA territories.
Several minor branch vessels of the circumflex territory are collateralized and do not receive flow from the bypass graft and are best served by medical therapy.
ALNCE�LAD widely patent. In the mid and far distal portion of the vessel there were mild to moderate nonflow-limiting focal stenosis of up to 50%.
SVG to the first major posterolateral branch is widely patent.
SVG to circumflex territory is 100% occluded at the ostium
Data Reviewed
-
EKG: Report Reviewed by me
Radiology: Report Reviewed by me
Labs: Labs Reviewed by me
Old Records: Reviewed
[2025-01-17 09:13] LABS: ALT (SGPT) 39 U/L (0-35); AST (SGOT) 142 U/L (14-36); Albumin 3.1 g/dl (3.5-5.0); Alkaline Phosphatase 185 U/L (38-126); Total Protein 5.6 g/dl (6.3-8.2)
--- NOTE | 2025-01-17 09:31 | PTCARENOTE ---
Patient arrived into room 3359. CHG done, skin intact. Oriented to room and use of call walton. Protonix gtt infusing. NPO. Daughter called requesting updated from Mariya. TT to Rosa Maguire (GI), and Sury Ramirez (Cardiology). Confirmed ok to start
heparin gtt as there was a concern for GIB. Patient updated.
[2025-01-17] MEDS: FARXIGA 10 MG PO (09:50)
[2025-01-17] MEDS: CRESTOR 20 MG PO (09:50)
[2025-01-17] MEDS: LOPRESSOR 25 MG PO (09:50)
[2025-01-17] MEDS: EFFEXOR XR 75 MG PO (09:50)
[2025-01-17] MEDS: HEPARIN 25000 UNITS/250 ML IV (10:09)
[2025-01-17 10:34] LABS: APTT 33.2 Sec (23.4-35.0)
[2025-01-17 10:47] LABS: Folate 7.6 ng/ml (2.76-20); Vitamin B12 672 pg/ml (239-931)
[2025-01-17 12:10] LABS: Glycohemoglobin (HgbA1c) 6.2 % (4.0-5.9)
[2025-01-17 12:40] LABS: Glucose - Point of Care 95 mg/dl (70-99)
--- NOTE | 2025-01-17 12:56 | PTCARENOTE ---
Patient transported to pathology lab technician for ROSITA/CV. Report given to FABIO Tyler.
[2025-01-17 13:08] LABS: Hematocrit 28.1 % (37.0-47.0); Hemoglobin 8.9 g/dL (12.0-16.0)
--- NOTE | 2025-01-17 13:29 | PTCARENOTE ---
Daughter, Denisa, called the nursing station. Update was given via telephone.
[2025-01-17 13:38] LABS: Troponin I 0.366 ng/ml
--- NOTE | 2025-01-17 14:32 | W.PN.UPDATE ---
Update Note
Progress Note Update
Patient underwent ROSITA and DCCV. Following DCCV (50 J synchronized), rhythm was asystole. We gave atropine, and started chest compressions. After 2 minutes, we gave 1mg IV epi, and resumed chest compressions. At next rhythm check, ROSC had been
achieved. Patient was inbutated and transferred to ICU. Plan of care was discussed with critical care team and daughter was updated by phone.
CCT 35 min.
[2025-01-17] MEDS: SUBLIMAZE 50 MCG IV ×5 (14:56→20:34)
[2025-01-17] MEDS: LEVOPHED 250 IV (15:00)
--- NOTE | 2025-01-17 15:11 | CON.INTV ---
Consultation
Consultation Request
Date/Time Consultation Requested: 01/17/2025
Date/Time Consultation Performed: 01/17/2025
Requesting Provider: Dr. Humphries
Performing Provider: Dr. Johnson
Reason for Consultation: Cardiac arrest
Medical History
-
Chief Complaint: Abdominal pain
History of Present Illness:
79-year-old F with PMHx of A-fib/A-flutter on Eliquis, hypertension, hypercholesterolemia, history of Zoraida-en-Y bypass with history of anastomotic ulcer, history of CVA, NIDDM, former tobacco smoker, CAD s/p CABG and history of bioprosthetic AVR who
presented with weakness with increased fatigue, decreased appetite and abdominal discomfort. Patient had a Holter monitor on for the last week. Patient usually gets her care done at [facility]. Patient has been eating/drinking less
over the last 2 days. She has upper abdominal pain that radiates diffusely with occasional sharp, intense pain. Also had been vomiting SUPERVISOR SPEECH with clear liquid. No diarrhea reported. She has been worked up in the past at other facilities for her
abdominal pain. She reportedly was at [facility] 4 weeks SUPERVISOR SPEECH after being admitted for syncope and found to have A-fib and started on anticoagulation. Since then, she has been having ongoing abdominal pain. Also had been seen at [facility] 2
times in the last 2 weeks. Has a suspected anastomotic ulcer and during her first visit it was suspected that she had passed a stone, and on the second visit she had a left heart catheterization which showed nonobstructive disease (per
documentation). She had been discharged home with PPI + Carafate. Initially here in the ER, she was afebrile with pulse rate 113, respiratory rate 16, BP 122/77 and she was saturating 98% on room air. Labs showed elevated WBC at 15, Hb 11.9,
sodium 133, creatinine 1.2, COVID-19 antigen negative, and flu swab negative. CT abdomen/pelvis showed thickening in the stomach and in the area of the gastrojejunostomy with findings suggesting gastritis and a possible small ulcer at the level of
the gastrojejunostomy. Also marked distention of the intrahepatic biliary ducts and CBD, possibly related to prior cholecystectomy. The bases of her lungs were clear. She was initially given IVF, pain medications and PPI and admitted to
telemetry. Patient then became tachycardic with unstable HR into the 140s and she was upgraded to the IMU on 01/17. Patient went for a ROSITA with cardioversion and after patient was shocked with 50 J, her rhythm degraded into asystole. Atropine
administered and CPR/ACLS started. Patient given 1 mg epi and after the second round of CPR, ROSC achieved. A-line attempted into left radial artery by anesthesia which was unsuccessful as patient was moving around and being agitated. Patient
transferred to the ICU for further care and Wood Cabinetmaker service consulted for additional management/recommendations.
I had seen the patient after code 9 was called. ROSC had been achieved by the time I arrived to patient's bedside in medical laboratory scientist, bay#4. Patient's heart rate currently 74. She had been intubated by anesthesia and only propofol was given to her
without any need for paralytic. Patient being bagged via BVM from respiratory therapist. Anesthesia trying to insert A-line into left radial artery however patient is being uncooperative and agitated, moving her limbs trying to sit up out of bed
and remove IV/endotracheal tube. Patient is moving all 4 extremities spontaneously. Once patient brought to the ICU, her MAP was in the upper 40s and fluid bolus and Levophed started with improvement in BP. Heart rate remained in the upper
40s�50s although it did improve with Levophed. Patient had almost absent breath sounds in the left hemithorax and this resolved with retraction of the ETT by total of 4 cm. CXR confirmed proper placement of distal tip of ETT. Family called and
the daughter was updated by cardiology team and she is en route here to the hospital.
PMHx: A-fib/a flutter on Eliquis, hypertension, history of Zoraida-en-Y bypass with history of anastomotic ulcer, history of breast cancer s/p mastectomy/XRT on letrozole, history of CVA, hypercholesterolemia, NIDDM, history of syncope, pancreatic
atrophy, history of colon polyps, former tobacco smoker, CAD s/p CABG, history of bioprosthetic AVR
PSHx: CABG, bioprosthetic AVR, cholecystectomy, femoral fracture with repair, gastric bypass approximately 20 years ago
Past Medical History
Past Medical History: Other (Above as per HPI)
Past Surgical History: Other (Above as per HPI)
Social History
Tobacco: Former Smoker (Smoked few cigarettes per day; quit many years)
Alcohol: None
Drug: None
Personal:
Living: With Family
Family History
Family History: Unable to Obtain (Patient is intubated/sedated)
Allergies / Home Medications
Allergies
Allergy/AdvReac Type Severity Reaction Status Date / Time
No Known Allergies Allergy Verified 01/16/25 19:07
Home Medications
�Medication �Instructions �Recorded �Confirmed �Last Taken �Type
apixaban 5 mg tablet (Eliquis) 5 mg PO BID Blood Clot 01/17/25 01/17/25 Unknown History
Prevention/Tx
denosumab 60 mg/mL subcutaneous 60 mg SC [id number] OSTEOPOROSIS 01/17/25 01/17/25 Unknown History
syringe (Prolia)
empagliflozin 10 mg tablet 10 mg PO DAILY Heart 01/17/25 01/17/25 Unknown History
(Jardiance) Disease/Condition
letrozole 2.5 mg tablet 2.5 mg PO DAILY Hormonal Agent 01/17/25 01/17/25 Unknown History
lisinopril 2.5 mg tablet 2.5 mg PO DAILY Blood Pressure 01/17/25 01/17/25 Unknown History
metoprolol tartrate 25 mg tablet 25 mg PO TID Heart 01/17/25 01/17/25 Unknown History
Disease/Condition
oxycodone 5 mg tablet 5 mg PO BIDPRN PRN severe pains 01/17/25 01/17/25 Unknown History
pantoprazole 40 mg tablet,delayed 40 mg PO DAILY Gastrointestinal 01/17/25 01/17/25 Unknown History
release Issue
rosuvastatin 20 mg tablet 20 mg PO DAILY High Cholesterol 01/17/25 01/17/25 Unknown History
sucralfate 1 gram tablet 1 g PO AC Gastrointestinal Issue 01/17/25 01/17/25 Unknown History
Review of Systems
-
Unable to Obtain full review of systems at this time due to: Patient Intubation
Vitals / Labs / Diagnostic Testing
Vital Signs
Temp Pulse Resp BP Pulse Ox
98.3 F 139 11 91/58 92
01/17/25 12:00 01/17/25 10:15 01/17/25 10:15 01/17/25 09:15 01/17/25 14:50
Lab Data
01/17/25 12:50
01/17/25 04:55
Laboratory Results
01/17/25
10:03
APTT 33.2
Microbiology
01/16/25 22:12 Nasal Swab Influenza Types A & B (TARA) - Final
Negative for Influenza A & B, NAAT
Negative results must be combined with clinical observations
and patient history.
Nucleic Acid Amplification test (NAAT)performed on the
[employer] platform.
Diagnostic Testing:
Physical Exam
-
HEENT: Normocephalic and Other (ETT in place)
Cardiovascular: Peripheral Edema (negative) and Other (Bradycardia)
Respiratory: Wheeze (negative), Rales (Bibasilar (L >R)), Rhonchi (negative) and Other (Mechanical breath sounds heard bilaterally)
GI: Soft, Non Distended, Non Tender and Normal Bowel Sounds
Neurology: Tremors (negative) and Other (Sedated with occasional paroxysmal attempts to jump out of bed and remove the endotracheal tube/peripheral IVs)
Skin: Warm, Dry and Other (Mottled appearance of lower extremities (R >L))
General: Respiratory Distress (negative), Fever (negative) and Chills (negative)
Assessment
-
Assessment: 79-year-old F with PMHx of A-fib/A-flutter on Eliquis, hypertension, hypercholesterolemia, history of Zoraida-en-Y bypass with history of anastomotic ulcer, history of CVA, NIDDM, former tobacco smoker, CAD s/p CABG and history of
bioprosthetic AVR who presented with weakness with increased fatigue, decreased appetite and abdominal discomfort. Patient has had reduced oral intake for the 48 hours SUPERVISOR SPEECH. She was recently hospitalized at both [facility] over the last
month with recently diagnosed A-fib started on Eliquis. Patient presented here with abdominal pain and CT abdomen/pelvis suggested gastritis with a suspected small ulcer at the level of the gastrojejunostomy. Patient developed unstable tachycardia
due to A-fib/flutter with RVR, and cardiology performed ROSITA with cardioversion on 01/17. After patient was shocked with 50 J, she developed asystole and CPR/ACLS performed with ROSC shortly thereafter achieved. Patient transferred to the ICU for
further care and Wood Cabinetmaker service consulted for additional management/recommendations.
Chronic conditions SUPERVISOR SPEECH: A-fib/a flutter on Eliquis, hypertension, history of Zoraida-en-Y bypass with history of anastomotic ulcer, history of breast cancer s/p mastectomy/XRT on letrozole, history of CVA, hypercholesterolemia, NIDDM, history of
syncope, pancreatic atrophy, history of colon polyps, former tobacco smoker, CAD s/p CABG, history of bioprosthetic AVR
Impression:
#In-hospital cardiac arrest s/p cardioversion with ROSC after 2nd round of CPR
#Rapid A-fib s/p ROSITA with DCCV now with bradycardia due to slow a-fib vs junctional escape rhythm
#Circulatory shock � likely due to bradycardia + sedation given for intubation during IHCA in the setting of hypovolemia (reduced PO intake SUPERVISOR SPEECH)
#Abdominal pain with reduced appetite SUPERVISOR SPEECH
#JAVID (however patient may also have CKD and baseline is currently unknown)
#Elevated troponin likely due to demand ischemia
#Anemia
#History of gastrojejunal anastomotic ulcer s/p Zoraida-en-Y bypass
#History of CAD s/p CABG
#History of bioprosthetic AVR
#History of CVA
#NIDDM
Plan:
- Patient underwent ROSITA with cardioversion today (01/17) and after patient shocked with 50 J her rhythm degraded into asystole and ROSC achieved after patient was given atropine +1 mg epinephrine (total) with subsequent rhythm bradycardia due to slow
A-fib versus junctional escape rhythm.
- Cautiously continue heparin gtt while trending H/H; also check INR
- Trend H/H and transfuse if needed to keep Hb>7g/dL; keep plt>50k (given suspected small anastomotic ulcer on CT abdomen/pelvis from admission) - no current signs of bleeding
- Cardiology on board and recs appreciated
- Replete electrolytes with K>4, Mg>2
- Echo performed at bedside - follow up official report
- Trend troponin until it peaks
- If bradycardia persists/worsens especially while weaning off Levophed, then patient may need temporary pacing wire
- Continue with mechanical ventilation with daily SAT/SBT if clinically appropriate
- ETT was at 26cm, and then was retracted total of 4cm with improved aeration into L-lung and improved SpO2 from 88% to 97%; CXR shows appropriate ETT position s/p ETT pulled back
- Maintain plateau pressure <30 and titrate FiO2 + PEEP to keep SpO2 >90-94%
- Continue aspiration precautions; keep HOB >30-45�
- prn nebulized bronchodilators - not currently bronchospastic
- Oropharyngeal + deep ETT suctioning with subglottic as needed
- Daily CXR + blood gas
- Daily vent adjustments as needed based on blood gas and SaO2
- Low level of sedation with goal RASS as 0 to -2
- Avoid precedex if possible in setting of bradycardia
- Continue levophed and titrate to keep MAP>65
- She may have PAD as her DBP is low and her lower extremities appear mottled (L>R) ever since ROSC
- Consider CECE
- Given additional 1L NS 0.9% bolus once arrived to ICU; continue with maintenance fluids; of note, bedside echo performed while in ICU s/p ROSC, and EF appeared to be >55-60%, possibly hyperdynamic, in keeping with hypovolemia
- Trend LFTs
- Trend sNa
- Trend sCr and monitor UOP
- Given her suspected ulcer on imaging, GI has been consulted
- As stated above, no current clinical signs of bleeding - continue to monitor
- Continue PPI 40mg IV q12hr
- Outpatient medical records from [facility] pending
- Maintain euglycemia with goal BG 140-180; HbA1c 6.2 on 01/17/2025
- Stress ulcer ppx: PPI
- DVT ppx: Heparin gtt
Code status: Full code
Continue ICU level of care for this critically ill patient.
Critical care statement: A total of 41 minutes of critical care time was provided for this patient today. This includes management of unstable vital signs, evaluation of the patient at bedside, reviewing the patient's pertinent medical records
including radiographs, microbiology, laboratory evaluations, and discussion with primary team, consultants, pharmacy, nutrition, physical therapy, case management, charge nurse, critical care nursing, and respiratory therapy.
Data:
CT abd/pelvis with IV contrast 01/16/2025:
1. There is thickening of the stomach and in the area of the gastrojejunostomy with findings suggesting gastritis and a possible small ulcer at the level of the gastrojejunostomy.
2. There is marked distention of the intrahepatic biliary ducts as well as the common bile duct. This could be related to previous cholecystectomy. Correlation with liver function tests is recommended.
[2025-01-17] MEDS: VERSED 2 MG IV (15:31)
[2025-01-17 15:53] LABS: B.E. -13.7 mmol/L; O2 Saturation % 98.6 % (94-98); PCO2 30 mmHg (32-35); PO2 350 mmHg (83-108)
[2025-01-17 15:57] LABS: HCO3 12.6 mmol/L (21-28)
[2025-01-17 16:04] LABS: Hematocrit 28.7 % (37.0-47.0); Hemoglobin 8.7 g/dL (12.0-16.0); Mean Corp Hgb Conc. 30.3 g/dL (33.0-37.0); Mean Corpuscular Volume 94.1 fL (81.0-99.0); Platelet Count 250 10^3/uL (130-400); Red Cell Dist. Width 15.3 % (11.5-14.5)
[2025-01-17 16:12] LABS: INR 1.32; PT 16.6 Sec (11.4-14.6)
[2025-01-17 16:13] LABS: APTT 38.2 Sec (23.4-35.0)
[2025-01-17] MEDS: DIPRIVAN 100 IV (16:14)
[2025-01-17 16:15] LABS: Blood Urea Nitrogen 16 mg/dl (7-17); Calcium 7.1 mg/dl (8.4-10.2); Carbon Dioxide 17 mmol/L (22-30); Chloride 116 mmol/L (98-107); Estimated Creatinine Clearance 38 ml/min; Glucose 183 mg/dl (70-99); Magnesium 2.0 mg/dl (1.6-2.3); Potassium 3.7 mmol/L (3.5-5.1); Sodium 138 mmol/L (135-145); eGFR 46.62
[2025-01-17 16:30] LABS: Troponin I 0.774 ng/ml
[2025-01-17 17:22] LABS: Glucose - Point of Care 192 mg/dl (70-99)
--- NOTE | 2025-01-17 17:31 | PTCARENOTE ---
Patient arrived from [employer] approx 1430 s/p code 9; see code sheet for interventions. Patient restless in bed. Avalos in color. Levo started for hypotension. 1L NS bolus given. Aflutter vs PAT/ junctional on tele with PVCs. Weak pedal pulses. Skin
intact. Afebrile. Heparin gtt continues per the worklist. Dr. Chavez and Alex at bedside. PRN fentanyl doses given with minimal result. Versed 2mg IV also given for agitation/ restlessness. DHT placed, confirmed placement via CXR. DHT 65cm at
right nare. ETT #8 22cm @lip. ABG obtained; Vent settings adjusted to Rate 22/TV 500/ Fi02 50 PEEP 5. LLL faint crackles. Echo done at bedside. Lab work sent. Critical results reported to Dr. Fisher. Tele reviewed pt in NSR now.
Daughter at bedside updated. Dr. Chavez rounded to speak with daughter again.
[2025-01-17 18:16] LABS: Triglycerides 106 mg/dl (10-149)
[2025-01-17] MEDS: SUBLIMAZE 100 IV (19:26)
[2025-01-17] MEDS: NOVOLOG FLEXPEN-LOW RESISTANCE 1 UNITS SC (19:50)
[2025-01-17] MEDS: NSS (PRESERVATIVE FREE) 10 ML IV (19:51)
[2025-01-17 20:00] LABS: Glucose - Point of Care 169 mg/dl (70-99)
--- NOTE | 2025-01-17 20:00 | PTCARENOTE ---
Assumed care of patient. Hand-off drip validation done with off-going nurse, see separate documentation. Patient is sedated on propofol, fentanyl drip started due to frequent pushes on dayshi. Patient awakens to verbal stimuli and is able to
follow commands and nod her head. Rectal temperature 99.6. Restraints in place. Patient is in NSR, pulses are palpable, no edema noted on exam. Patient has 8.0 tube, 22 @ lip, tube moved to center of mouth. She is on A/C with rate of 22, TV 500, 50%
and 5 PEEP. Lungs are diminished in the bases. Abdomen is soft, non-tender, bowel sounds positive. Mathews catheter in place draining light yellow urine. Skin intact. IV sites intact.
[2025-01-17 21:28] LABS: Venous Blood Gas B.E. -6.7 mmol/L (-4 to +4); Venous Blood Gas O2 Sat % 95.4 %
[2025-01-17 21:31] LABS: Urine Character Clear (Clear)
[2025-01-17 21:37] LABS: Urine Squamous Cell 0-2 /LPF (Few)
[2025-01-17 22:51] LABS: APTT 84.7 Sec (23.4-35.0)
--- NOTE | 2025-01-17 23:04 | PTCARENOTE ---
APTT therapeutic, no changes to heparin drip at this time.
[2025-01-18] VITALS (35 sets, daily range): BP systolic 88–146; BP diastolic 48–105; BMI 25.6
[2025-01-18] MEDS: NOVOLOG FLEXPEN-LOW RESISTANCE SC ×5 (00:22→23:34)
[2025-01-18 00:32] LABS: Glucose - Point of Care 77 mg/dl (70-99)
--- NOTE | 2025-01-18 00:58 | PTCARENOTE ---
Patient UO dropped to 20/hr, MACHINIST MECHANIC made aware. 250cc bolus ordered.
[2025-01-18] MEDS: NSS 250 IV (01:05)
[2025-01-18] MEDS: NSS 1000 IV (01:31)
[2025-01-18] MEDS: DIPRIVAN 100 IV ×2 (01:44→07:39)
[2025-01-18] MEDS: SUBLIMAZE 50 MCG IV ×4 (01:44→12:49)
--- NOTE | 2025-01-18 01:58 | PTCARENOTE ---
Patient extremely agitated, given PRN dose of fentanyl and drip increased.
--- NOTE | 2025-01-18 04:01 | PTCARENOTE ---
Patient resting comfortably in bed at this time. No changes in assessment.
[2025-01-18 04:55] LABS: Hematocrit 20.6 % (37.0-47.0); Hemoglobin 6.7 g/dL (12.0-16.0); Mean Corp Hgb Conc. 32.5 g/dL (33.0-37.0); Mean Corpuscular Volume 90.4 fL (81.0-99.0); Platelet Count 137 10^3/uL (130-400); Red Cell Dist. Width 15.5 % (11.5-14.5)
[2025-01-18 05:08] LABS: APTT > 200 Sec (23.4-35.0)
[2025-01-18 05:13] LABS: ALT (SGPT) 57 U/L (0-35); AST (SGOT) 100 U/L (14-36); Albumin 2.2 g/dl (3.5-5.0); Alkaline Phosphatase 131 U/L (38-126); Blood Urea Nitrogen 15 mg/dl (7-17); Calcium 6.6 mg/dl (8.4-10.2); Carbon Dioxide 16 mmol/L (22-30); Chloride 117 mmol/L (98-107); Estimated Creatinine Clearance 38 ml/min; Glucose 69 mg/dl (70-99); Potassium 3.4 mmol/L (3.5-5.1); Sodium 139 mmol/L (135-145); Total Protein 4.4 g/dl (6.3-8.2); eGFR 46.62
[2025-01-18 05:26] LABS: Troponin I 1.520 ng/ml
[2025-01-18] MEDS: DEXTROSE 50% SYRINGE 12.5 GRAMS IV (05:41)
--- NOTE | 2025-01-18 05:46 | W.PN.GI.CBS2 ---
Today's Communication / Plan
-
Please see assessment and plan for details.
Assessment / Plan
-
1. Abdominal pain: Likely more related to her arrhythmia given no relationship to eating, worse prior to her syncopal episodes, now status post asystole code after cardioversion for A-fib with RVR and hypotension. Her hemoglobin is slightly lower
today heparin, though no signs of gross bleeding. Her APTT was high overnight, though again no signs of bleeding now. At this point we will await morning hemoglobin, if still low will plan EGD today after transfusion prior to extubation if
planned. Will continue PPI twice daily. Still awaiting records from [facility].
Subjective
Subjective
Date of Service: January 18, 2025
Events noted, now intubated, though is responsive, off of pressors. Hemoglobin low this morning though no signs of active GI bleeding per nursing overnight, has remained hemodynamically stable.
Objective
Data Reviewed
Laboratory Data:
Laboratory Results
PT 16.6 Sec (11.4-14.6) H 01/17/25 15:52
INR 1.32 01/17/25 15:52
APTT > 200 Sec (23.4-35.0) H* 01/18/25 04:30
Phosphorus 4.0 mg/dl (2.5-4.5) 01/17/25 15:52
Magnesium 2.0 mg/dl (1.6-2.3) 01/17/25 15:52
Total Bilirubin 0.3 mg/dl (0.2-1.3) 01/18/25 04:30
AST 100 U/L (14-36) H 01/18/25 04:30
ALT 57 U/L (0-35) H 01/18/25 04:30
Alkaline Phosphatase 131 U/L (38-126) H 01/18/25 04:30
Lipase 147 U/L (23-300) 01/16/25 19:12
Vital Signs and I&O:
Vital Signs
Temp Pulse Resp BP Pulse Ox
97.9 F 74 16 90/55 100
01/18/25 04:00 01/18/25 04:00 01/18/25 04:00 01/18/25 04:00 01/18/25 04:00
I&O
01/16/25 01/17/25 01/18/25
06:59 06:59 06:59
Intake Total 2771.3 / 2771.3
Output Total 1340 / 1340
Balance 1431.3 / 1431.3
Physical Exam
Physical Exam
General: NAD
Abdomen: normal bowel sounds, soft, no tenderness, no masses or bruits, no ascites
[2025-01-18 05:49] LABS: Glucose - Point of Care 55 mg/dl (70-99)
[2025-01-18 06:03] LABS: Venous Blood Gas B.E. -10.6 mmol/L (-4 to +4); Venous Blood Gas O2 Sat % 94.5 %
--- NOTE | 2025-01-18 06:09 | PTCARENOTE ---
Critical labs resulting. SOUND ENGINEERING TECHNICIAN made aware. Repeating labs. Collected and sent to lab.
[2025-01-18 06:12] LABS: Glucose - Point of Care 82 mg/dl (70-99)
[2025-01-18 06:15] LABS: APTT 75.2 Sec (23.4-35.0)
[2025-01-18 06:21] LABS: Hematocrit 27.5 % (37.0-47.0); Hemoglobin 8.7 g/dL (12.0-16.0)
[2025-01-18 06:42] LABS: Blood Urea Nitrogen 15 mg/dl (7-17); Calcium 7.4 mg/dl (8.4-10.2); Carbon Dioxide 15 mmol/L (22-30); Chloride 117 mmol/L (98-107); Estimated Creatinine Clearance 38 ml/min; Glucose 68 mg/dl (70-99); Potassium 4.0 mmol/L (3.5-5.1); Sodium 140 mmol/L (135-145); eGFR 46.62
[2025-01-18] MEDS: NSS (PRESERVATIVE FREE) 10 ML IV ×2 (07:39→20:19)
[2025-01-18] MEDS: PROTONIX IV 40 MG IV ×2 (07:39→20:19)
--- NOTE | 2025-01-18 08:05 | W.PN.INTV ---
Today's Communication / Plan
Recommendations
Mechanical ventilation, SBT today with plans to extubate
Start D5 water and continue with IVF with LR
Check beta-hydroxybutyrate, trend blood glucose and serum bicarb level; trend blood gas
If worsening metabolic acidosis, then start bicarb drip, however no need for bicarb drip if pH remains >7.1
Maintain MAP >65
Tube feeds
NPO p MN for pacemaker
Continue ICU level of care for this critically ill patient
Assessment
-
Assessment: 79-year-old F with PMHx of A-fib/A-flutter on Eliquis, hypertension, hypercholesterolemia, history of Zoraida-en-Y bypass with history of anastomotic ulcer, history of CVA, NIDDM, former tobacco smoker, CAD s/p CABG and history of
bioprosthetic AVR who presented with weakness with increased fatigue, decreased appetite and abdominal discomfort. 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 She was recently hospitalized at both [facility] over the last
month with recently diagnosed A-fib started on Eliquis. Patient presented here with abdominal pain and CT abdomen/pelvis suggested gastritis with a suspected small ulcer at the level of the gastrojejunostomy. Patient developed unstable tachycardia
due to A-fib/flutter with RVR, and cardiology performed ROSITA with cardioversion on 01/17. After patient was shocked with 50 J, she developed asystole and CPR/ACLS performed with ROSC shortly thereafter achieved. Patient transferred to the ICU for
further care and Acquisition Specialist service consulted for additional management/recommendations.
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
syncope, pancreatic atrophy, history of colon polyps, former tobacco smoker, CAD s/p CABG, history of bioprosthetic AVR
Impression:
#In-hospital cardiac arrest s/p cardioversion with ROSC after 2nd round of CPR
#Rapid A-fib s/p ROSITA with DCCV with subsequent bradycardia due to slow a-fib vs junctional escape rhythm
#Circulatory shock � likely due to bradycardia + sedation given for intubation during IHCA in the setting of hypovolemia (reduced PO intake [employer]NAGER [employer]) - shock state now resolved
#Starvation ketoacidosis
#Abdominal pain with reduced appetite MANAGER [employer] (also reported non-compliance to NOAC due to her symptoms)
#JAVID (however patient may also have CKD and baseline is currently unknown)
#Elevated troponin likely due to demand ischemia
#Anemia
#History of gastrojejunal anastomotic ulcer s/p Zoraida-en-Y bypass
#History of CAD s/p CABG
#History of bioprosthetic AVR
#History of CVA
#NIDDM
Plan:
- Patient underwent ROSITA with cardioversion on 01/17 and after patient shocked with 50 J her rhythm degraded into asystole and ROSC achieved after patient was given atropine +1 mg epinephrine (total) with subsequent rhythm bradycardia due to slow
A-fib versus junctional escape rhythm.
- Cautiously continue heparin gtt while trending H/H
- Trend H/H and transfuse if needed to keep Hb>7g/dL; keep plt>50k (given suspected small anastomotic ulcer on CT abdomen/pelvis from admission) - no current signs of bleeding
- Cardiology on board and recs appreciated
- Replete electrolytes with K>4, Mg>2
- Echo performed at bedside in ICU on 01/17, showing normal biventricular size and systolic function with no regional WMA. History of bioprosthetic aortic valve replacement. Peak/mean gradients across aortic valve are 25/17 mmHg, respectively. No
AI appreciated. Moderate TR with PASP mildly elevated at 32 mmHg
- Trend troponin until it peaks (although shot up to >1 in the setting of recent CPR)
- If bradycardia persists/worsens, then patient may need temporary pacing wire; given her sinus arrest, she is awaiting a pacemaker tomorrow per EP
- Continue with mechanical ventilation with daily SAT/SBT if clinically appropriate - plan to extubate later today
- Maintain plateau pressure <30 and titrate FiO2 + PEEP to keep SpO2 >90-94%
- Continue aspiration precautions; keep HOB >30-45�
- prn nebulized bronchodilators - not currently bronchospastic
- Oropharyngeal + deep ETT suctioning with subglottic as needed
- Daily CXR + blood gas
- Daily vent adjustments as needed based on blood gas and SaO2
- Low level of sedation with goal RASS as 0 to -2
- Avoid precedex if possible in setting of bradycardia
- Now off levophed; keep MAP>65
- She may have PAD as her DBP has been low and her lower extremities appear mottled (L>R) ever since ROSC; extremities appear less mottled today (01/18)
- Consider CECE
- Given additional 1L NS 0.9% bolus once arrived to ICU; continue with maintenance fluids; of note, bedside echo performed while in ICU s/p ROSC, and EF appeared to be >55-60%, possibly hyperdynamic, in keeping with hypovolemia
- Trend LFTs
- Trend sCr and monitor UOP
- Given her continued metabolic acidosis with hypoglycemia in the likely due to starvation ketoacidosis, I will continue with IVF with LR and also start D5W; trend BG. HCO3 and check BOHB leel
- Given her suspected ulcer on imaging, GI has been consulted
- As stated above, no current clinical signs of bleeding - continue to monitor
- Continue PPI 40mg IV q12hr
- Outpatient medical records from [facility] pending
- Maintain euglycemia with goal BG 140-180; HbA1c: 6.2 on 01/17/2025
- Stress ulcer ppx: PPI
- DVT ppx: Heparin gtt
Code status: Full code
Daughter updated at bedside (Denisa), and all questions were answered to her satisfaction.
Continue ICU level of care for this critically ill patient.
Critical care statement: A total of 37 minutes of critical care time was provided for this patient today. This includes management of unstable vital signs, evaluation of the patient at bedside, reviewing the patient's pertinent medical records
including radiographs, microbiology, laboratory evaluations, and discussion with primary team, consultants, pharmacy, nutrition, physical therapy, case management, charge nurse, critical care nursing, and respiratory therapy.
Data:
CT abd/pelvis with IV contrast 01/16/2025:
1. There is thickening of the stomach and in the area of the gastrojejunostomy with findings suggesting gastritis and a possible small ulcer at the level of the gastrojejunostomy.
2. There is marked distention of the intrahepatic biliary ducts as well as the common bile duct. This could be related to previous cholecystectomy. Correlation with liver function tests is recommended.
Subjective Dataa
Subjective Data
Date of Service:
Date of Service: January 18, 2025
Chief Complaint: Acquisition Specialist Follow Up
Subjective:
Patient seen and evaluated this morning. Remains intubated -on a pressure support trial this morning on 8/5cmH2O at 40% FiO2. PIP 15 cmH2O, VTe 447 mL and breathing at 12 breaths/min. Heart rate 104, BP 146/71, and saturating 97%. Off levo since
last night. Following commands, anxious appearing.
Review of Systems
General: Other (Unobtainable - intubated)
Objective Data
Data Reviewed
Vital Signs / I&O / Oxygen:
Vital Signs
Temp Pulse Resp BP Pulse Ox
98.1 F 98 11 135/63 98
01/18/25 07:21 01/18/25 09:41 01/18/25 09:41 01/18/25 09:00 01/18/25 09:56
Intake and Output
01/17/25 01/18/25 01/19/25
06:59 06:59 06:59
Intake Total 2882.0 / 2992.7 319.2 / 319.2
Output Total 1360 / 1380 45 / 45
Balance 1522.0 / 1612.7 274.2 / 274.2
SaO2 [CPAP/PSV] 98
SaO2 [A/C] 100
SaO2 98
Nasal Cannula flow liters per 2
minute
Physical Exam
General: Respiratory Distress (negative), Comfortable, Chills (negative) and Sweats (negative)
HEENT: Normocephalic, Anicteric and Other (ETT in place)
Cardiovascular: Peripheral Edema (Trace bilateral lower extremity edema)
Respiratory: Wheeze (negative), Crackles (Bibasilar), Rhonchi (negative), Non-Labored Respirations and ET Tube (Mechanical breath sounds heard bilaterally)
GI: Soft, Non Distended, Tender (Epigastric) and Normal Bowel Sounds
Neurology: Lethargic (Lethargic but arousable to voice and following commands)
Skin: Warm, Dry, Cyanosis (negative) and Jaundice (negative)
Labs/Micro/Reports
Lab Data
01/18/25 05:49
01/18/25 05:49
Laboratory Results
01/17/25 01/17/25 01/17/25
10:03 15:41 15:52
PT 16.6 H
INR 1.32
APTT 33.2 38.2 H
pH 7.23 L
pCO2 30 L
pO2 350 H
HCO3 12.6 L*
O2 Delivery Level
01/17/25 01/18/25 01/18/25
22:32 04:30 05:53
PT
INR
APTT 84.7 H > 200 H* 75.2 H
pH
pCO2
pO2
HCO3
O2 Delivery Level
01/18/25
09:35
PT
INR
APTT
pH 7.28 L
pCO2 34
pO2 173 H
HCO3 16.0 L
O2 Delivery Level Not Reportable
Microbiology
01/17/25 00:56 Blood/Venous Blood Culture - Preliminary
No Growth in 24 hours- Final report to follow
01/17/25 01:14 Blood/Venous Blood Culture - Preliminary
No Growth in 24 hours- Final report to follow
01/16/25 22:12 Nasal Swab Influenza Types A & B (TARA) - Final
Negative for Influenza A & B, NAAT
Negative results must be combined with clinical observations
and patient history.
Nucleic Acid Amplification test (NAAT)performed on the
[employer] platform.
[2025-01-18 08:10] LABS: Glucose - Point of Care 75 mg/dl (70-99)
--- NOTE | 2025-01-18 08:11 | W.PN.CD ---
Today's Communication / Plan
-
- Extubation attempt today
- NPO after midnight for PPM tomorrow.
Impression / Plan
-
I/P: 79F with atrial fibrillation/flutter (type unknown, noncompliant with apixaban), coronary artery disease s/p CABG, type 2 diabetes mellitus, not requiring insulin, CKD, and hypercholesterolemia presented to the emergency department with a chief
complaint of abdominal pain with AF/FL with EKG showing typical atrial flutter
Primary rehab care assistant: Dr. Duncan Schwartz ([place])
Atrial flutter, type unknown
- Typical atrial flutter based on the EKG morphology.
- Unresponsive to adenosine inthe ER
- s/p ROSITA/DCCV 01/17/25 - now in sinus rhythm
- sinus arrest noted with severe sick sinus syndrome and no sinus beat requiring resuscitation and code 9.
- Atrial fibrillation - likely persistent - High CHADSVasc score -8- age, gender, HTN, DM, CAD, CVA
- Non-compliant with Apixaban. High risk for stroke
- ROSITA was clear on 01/17/25
- Need for chronic anticoagulation-currently on Heparin
- Hold heparin at midnight for PPM in AM
- Plan to restart Eliquis once extubated.
Sinus arrest
- s/p code 9
- Intubated and resuscitated.
- Currently in sinus rhythm with frequent PACs and AT noted.
- With sinus arrest, will avoid Metoprolol at this time.
- Plan for PPM in AM
- Likely extubation today.
- Once liberated, will assess for PPM and discuss the need in detail for consent in AM
Abdominal pain
- Concern for ulcer, discussed with GI, hold apixaban, okay for heparin drip from GI perspective
- Prior cholecystectomy
Anemia, type unknown
- Prior gastric bypass, B12 and folate pending
CAD
- Stable without chest pain
- Status post CABG, with cardiac catheterization at [facility] as below
- Aggressive medical management
CKD, per outside records her baseline creatinine is 1.3�1.4
Type 2 diabetes mellitus, per primary service
Prior breast cancer, s/p XRT and chemotherapy
Hypercholesterolemia, rosuvastatin on hold with abdominal pain
SUBJECTIVE:
intubated but off sedation now. responding to voice. Off pressors.
DATA:
Transthoracic echocardiogram, 12/29/2024 (Dr. Siddiqui, [facility]):
LVEF 50%. Grade 1 DD.
Mildly dilated LA. Mild aortic valve stenosis. Normal RV systolic function.
Coronary angiography, 01/06/2025 (Dr. Mtz, [facility]):
Well compensated CAD with widely patent bypass grafts to the LAD and RCA territories.
Several minor branch vessels of the circumflex territory are collateralized and do not receive flow from the bypass graft and are best served by medical therapy.
LANCE�LAD widely patent. In the mid and far distal portion of the vessel there were mild to moderate nonflow-limiting focal stenosis of up to 50%.
SVG to the first major posterolateral branch is widely patent.
SVG to circumflex territory is 100% occluded at the ostium
Physical Exam
Vital Signs/Labs
Vital Signs
Temp Pulse Resp BP Pulse Ox
98.1 F 80 16 97/52 100
01/18/25 07:21 01/18/25 06:30 01/18/25 06:30 01/18/25 06:30 01/18/25 08:00
01/17/25 01/18/25 01/19/25
06:59 06:59 06:59
Actual Weight 74.1 kg
01/18/25 05:49
01/18/25 05:49
PT 16.6 Sec (11.4-14.6) H 01/17/25 15:52
INR 1.32 01/17/25 15:52
APTT 75.2 Sec (23.4-35.0) H 01/18/25 05:53
Magnesium 2.0 mg/dl (1.6-2.3) 01/17/25 15:52
Triglycerides Cancelled 01/17/25 16:03
LAB Results
01/17/25 01/17/25 01/17/25
05:10 12:50 15:54
Troponin I 0.042 H* 0.366 H* D 0.774 H* D
01/18/25
04:30
Troponin I 1.520 H*
Physical Exam
Constitutional: No acute distress and Comfortable
EENT: Anicteric and Moist mucous membranes
Cardiovascular: Rhythm & rate is regular, Pedal edema is absent and JVD pressure is normal
Respiratory: Respiratory effort normal and Lungs clear to auscul.
GI: Soft, Non tender and Normal bowel sounds
Data Reviewed
-
Date of Service: January 18, 2025
Medical Decision Making: Reviewed Test Results, Test Interpretation and Review of Case with other Provider
EKG: Tracing Personally Visualized and interpreted
Echo: Report Reviewed by me
X-Ray/CT/US/MRI/NUC/PET: Image Personally Visualized and interpreted
Medical Tests (PFT, Pathology etc): Discussed with Physician
Labs: Labs Reviewed by me
Old Records: Reviewed
Critical Care Time (in minutes): 32
--- NOTE | 2025-01-18 08:47 | PTCARENOTE ---
Patient on SAT- became slightly anxious and shaking. Emotional support provided. SBT started. Encouraged patient to take deep breaths. Denies pain. Pt nods in agreement. Daughter updated on phone.
Dr. Phillip TT to update; UO decreased to 20cc/hr. IVF increased to 100cc/hr.
[2025-01-18 09:47] LABS: B.E. -9.9 mmol/L; HCO3 16.0 mmol/L (21-28); O2 Saturation % 96.4 % (94-98); PCO2 34 mmHg (32-35); PO2 173 mmHg (83-108)
--- NOTE | 2025-01-18 10:03 | CM ---
Addendum entered by Emi Mayer 01/18/25 10:50:
Patient currently has [facility]- VN, OT, PT/.
Original Note:
I.A: Completed By FLAVIO Middleton. Patient admitted at other hospitals for suspected peptic ulcer disease, here had asystole arrest in the catherization lab, so intubated now, but the plan is to extubate today.
Patient lives with daughter (Dtdebbie) Denisa in a 2 ST with 1 STI and 12 STI w/ Chair Life. DME: Rolling Walker, Cane, (Walks slow at home) 4 Grab bars in the bathroom, plus Shower Bench.
PCP: Dr. Lady Ghotra
Pharm: [facility]
Patient has transport home. PLAN: SNF vs. Home PT
[2025-01-18 10:19] LABS: Glucose - Point of Care 73 mg/dl (70-99)
--- NOTE | 2025-01-18 10:24 | W.PN.HOSP.TC ---
Today's Communication/Plan
-
see plan
Assessment / Plan
Assessment / Plan
Gen: NAD, NCAT
CV: remains tachy, reg rhythm, +S1/S2, no m/r/g.
Resp: CTAB anteriorly, no rales, wheezes, or rhonchi.
Abd: +BS, soft, NT, ND
Skin: No rashes.
Neuro: CN 3-12 intact (pt moves head and facial muscles during exam but does not open eyes)
Psych: calm
01/17 TTE:
1. Normal biventricular size and systolic function, with no regional wall motion abnormalities. Estimated LVEF 60-65%.
2. History of bio-prosthetic aortic valve replacement. Peak/mean gradients across the aortic valve are 25/17 mmHg respectively. No aortic valve regurgitation seen.
3. Moderate tricuspid regurgitation.
4. No prior study available for comparison.
01/17 ROSITA:
1. Normal left ventricular size, wall thickness and systolic function. Estimated LVEF 50-55%.
2. S/p bio-prosthetic aortic valve replacement. No aortic regurgitation.
3. Moderate tricuspid regurgitation.
4. No thrombus in ANGELA.
5. We then proceeded to DCCV.
Aflutter with RVR:
-12/9AM called to bedside urgently by RN. Pt hadgiven Adenosine x 2 without resolution of tachycardia prior to my arrival 12/9AM. ECG reviewed with cardiology, currently aflutter with RVR. The pt had been noncompliant with Eliquis. s/p 3L NS. Pt
taken for TEECV on 01/17, ANGELA without thrombus, and after 50J had asystole. Given IV Atropine without ROSC. After CPR and epi x 1 ROSC was achieved. Pt transferred to ICU at that time intubated.
-TTE and ROSITA above
-cont heparin gtt
-cards following, PPM tomorrow
Acute hypoxemic resp failure:
-currently on SBT, PEEP/PSV 5
-follow Non-AG met acidosis (VBG/BMP)
-possible extubation later today
Abdominal pain and associated nausea:
-for 3-4 weeks
-PUD vs gastritis vs acute conversion disorder
-GI following
-was on PPI gtt, now on PPI IV BID
-may need EGD
Other problems:
CKD3a
Hyponatremia, resolved
Leukocytosis, improving, likely reactive
h/o Breast CA
PUD: currently on PPI gtt
Of note the patient has been to multiple hospitals recently and I encouraged the patient on 01/17 to pick 1 health system and stick with it.
Total critical care time spent = 32 min
Anticipated Discharge: > 48 hours
Subjective/Interval History
-
Date of Service: January 18, 2025
Intubated/sedated
Objective Data
-
Labs:
Laboratory Results
01/17/25 01/18/25 01/18/25
22:32 04:30 05:49
WBC 8.8
Hgb 6.7 L* D 8.7 L D
Hct 20.6 L* 27.5 L
Plt Count 137 D
APTT 84.7 H > 200 H*
HCO3
Sodium 139 140
Potassium 3.4 L 4.0
Chloride 117 H 117 H
Carbon Dioxide 16 L 15 L
BUN 15 15
Creatinine 1.2 H 1.2 H
Glucose 69 L 68 L
Calcium 6.6 L* 7.4 L
Total Bilirubin 0.3
AST 100 H
ALT 57 H
Alkaline Phosphatase 131 H
01/18/25 01/18/25
05:53 09:35
WBC
Hgb
Hct
Plt Count
APTT 75.2 H
HCO3 16.0 L
Sodium
Potassium
Chloride
Carbon Dioxide
BUN
Creatinine
Glucose
Calcium
Total Bilirubin
AST
ALT
Alkaline Phosphatase
Vital Signs:
Vital Signs
Temp Pulse Resp BP Pulse Ox
98.1 F 98 11 135/63 98
01/18/25 07:21 01/18/25 09:41 01/18/25 09:41 01/18/25 09:00 01/18/25 09:56
I&O
01/17/25 01/18/25 01/19/25
06:59 06:59 06:59
Intake Total 2882.0 / 2992.7 429.7 / 429.7
Output Total 1360 / 1380 85 / 85
Balance 1522.0 / 1612.7 344.7 / 344.7
[2025-01-18] MEDS: LR 1000 IV ×2 (11:24→19:48)
[2025-01-18] MEDS: D5W 1000 IV (11:29)
[2025-01-18 11:57] LABS: Glucose - Point of Care 85 mg/dl (70-99)
--- NOTE | 2025-01-18 12:11 | PTCARENOTE ---
Patient grabbing at chest. nods head 'yes' when asked if she has pain. PRN Fentanyl IVP provided. Pt repositioned, oral care done. IVF changed per the MAR. Blood sugars improving. Pt continues on SBT. Plan to recheck lab work this afternoon.
UO improving. Otherwise assessment unchanged. Pt following commands. Appears calm. She does get occasional anxious which resolves after holding hand and reassurance.
[2025-01-18 13:33] LABS: Venous Blood Gas B.E. -9.7 mmol/L (-4 to +4); Venous Blood Gas O2 Sat % 95.8 %
[2025-01-18] MEDS: HEPARIN 25000 UNITS/250 ML IV (14:05)
[2025-01-18 14:34] LABS: Blood Urea Nitrogen 14 mg/dl (7-17); Calcium 7.2 mg/dl (8.4-10.2); Carbon Dioxide 15 mmol/L (22-30); Chloride 115 mmol/L (98-107); Estimated Creatinine Clearance 38 ml/min; Glucose 101 mg/dl (70-99); Potassium 3.5 mmol/L (3.5-5.1); Sodium 136 mmol/L (135-145); eGFR 46.62
--- NOTE | 2025-01-18 15:27 | W.PN.UPDATE ---
Update Note
Progress Note Update
Patient was extubated without any immediate complications. Saturating 96% on nasal cannula. Does not complain of shortness of breath; still has some chest discomfort from the CPR yesterday. Continues to be awake and following commands. Daughter
at bedside, Denisa, and all questions were answered.
--- NOTE | 2025-01-18 15:29 | RESPNOTE ---
15:20 patient extubated and placed on 4L nasal cannula, 94%
--- NOTE | 2025-01-18 15:33 | PTCARENOTE ---
Patient extubated to 4LNC. Oral secretions suctioned. Dr. Johnson updated daughter at bedside.
[2025-01-18] MEDS: TYLENOL ORAL SOLUTION 650 MG TUBE ×2 (15:52→20:19)
[2025-01-18] MEDS: LIDOCAINE 4% PATCH 1 PATCH TOPICAL (17:07)
[2025-01-18] MEDS: KCL ELIXIR 40 MEQ TUBE (17:07)
[2025-01-18 17:41] LABS: Glucose - Point of Care 138 mg/dl (70-99)
--- NOTE | 2025-01-18 18:27 | PTCARENOTE ---
Patient passed bedside RN swallow. Ice chips given. Ok per Dr. Johnson. Patient and daughter made aware of of NPO at midnight.
Patient reports her breathing is ok. 4L NC remains in place. Coughing up small amount of yellow secretions. IVF : LR + D5W infusing. Heparin gtt infusing. Ordered to stop at midnight. Patient has been repositioned throughout the day. Heels floated.
Skin intact. SCDs on. Low grade temp 100.7. Dependency Counselor aware. Tylenol given via DHT. Plan for lab work later tonight.
[2025-01-18] MEDS: CARAFATE SUSPENSION 1 GM TUBE (20:19)
--- NOTE | 2025-01-18 21:00 | PTCARENOTE ---
Assumed care at 1900. Patient on heparin, LR, d5w. NSR with pacs. On 4 liters NC. Complaints of sternal pain from previous compressions- given tylenol with relief. No complaints of abd pain. See worklist for nursing shift assessment details.
[2025-01-18 21:23] LABS: Venous Blood Gas B.E. -7.2 mmol/L (-4 to +4); Venous Blood Gas O2 Sat % 95.4 %
[2025-01-18] MEDS: REMOVE LIDOCAINE PATCH 1 PATCH REMOVE (21:28)
[2025-01-18 22:15] LABS: Blood Urea Nitrogen 11 mg/dl (7-17); Calcium 7.7 mg/dl (8.4-10.2); Carbon Dioxide 17 mmol/L (22-30); Chloride 113 mmol/L (98-107); Estimated Creatinine Clearance 42 ml/min; Glucose 136 mg/dl (70-99); Potassium 4.1 mmol/L (3.5-5.1); Sodium 133 mmol/L (135-145); eGFR 51.75
[2025-01-18] MEDS: DILAUDID 0.25 MG IV (23:30)
[2025-01-18 23:45] LABS: Glucose - Point of Care 143 mg/dl (70-99)
[2025-01-19] VITALS (25 sets, daily range): BP systolic 87–143; BP diastolic 57–95; BMI 26.3
--- NOTE | 2025-01-19 | PTCARENOTE ---
Addendum entered by Jolanta Ordonez RN 01/19/25 02:20:
heparin placed on hold per orders.
Original Note:
No change from previous assessment. Sinus tach on the monitor. Patient with severe sternal pain and requesting something stronger than tylenol. ICU provider made aware and ordered prn dilaudid 0.25.
[2025-01-19] MEDS: D5W 1000 IV ×2 (00:17→14:05)
[2025-01-19] MEDS: LR 1000 IV (03:59)
[2025-01-19 04:27] LABS: APTT 34.0 Sec (23.4-35.0)
[2025-01-19 04:28] LABS: Hematocrit 22.1 % (37.0-47.0); Hemoglobin 7.0 g/dL (12.0-16.0); Mean Corp Hgb Conc. 31.7 g/dL (33.0-37.0); Mean Corpuscular Volume 90.9 fL (81.0-99.0); Platelet Count 123 10^3/uL (130-400); Red Cell Dist. Width 15.4 % (11.5-14.5)
[2025-01-19 04:39] LABS: Blood Urea Nitrogen 10 mg/dl (7-17); Calcium 7.7 mg/dl (8.4-10.2); Carbon Dioxide 20 mmol/L (22-30); Chloride 112 mmol/L (98-107); Estimated Creatinine Clearance 42 ml/min; Glucose 116 mg/dl (70-99); Magnesium 1.8 mg/dl (1.6-2.3); Potassium 4.0 mmol/L (3.5-5.1); Sodium 135 mmol/L (135-145); eGFR 51.75
[2025-01-19 04:52] LABS: Troponin I 0.819 ng/ml
[2025-01-19 05:43] LABS: Glucose - Point of Care 131 mg/dl (70-99)
[2025-01-19] MEDS: DILAUDID 0.25 MG IV (05:43)
[2025-01-19] MEDS: NOVOLOG FLEXPEN-LOW RESISTANCE SC ×2 (05:43→12:30)
--- NOTE | 2025-01-19 05:51 | W.PN.GI.CBS2 ---
Today's Communication / Plan
-
Please see assessment and plan for details.
Assessment / Plan
-
1. Abdominal pain: Likely more related to her arrhythmia given no relationship to eating, worse prior to her syncopal episodes, now status post asystole code after cardioversion for A-fib with RVR and hypotension. She is now extubated and overall
doing well, for pacemaker today for sick sinus syndrome. She still has some epigastric discomfort, though overall improved. Her hemoglobin is slightly lower today, awaiting repeat, no signs of gross bleeding and is overall tolerated heparin
without difficulty. Again she thinks that she had EGD at [facility], awaiting records from [facility] still. If she did not or pain is increasing then we will need to plan EGD here, possibly tomorrow for further evaluation of what appears to
be marginal ulcer on CT scan. Continue PPI twice daily.
Subjective
Subjective
Date of Service: January 19, 2025
Events noted, patient extubated, overall doing well, for pacemaker today. She still has some substernal/epigastric discomfort, though no nausea, vomiting. No bowel movements yesterday or overnight per nursing.
Objective
Data Reviewed
Laboratory Data:
Laboratory Results
01/19/25 04:07
Laboratory Results
PT 16.6 Sec (11.4-14.6) H 01/17/25 15:52
INR 1.32 01/17/25 15:52
APTT 34.0 Sec (23.4-35.0) 01/19/25 04:07
Phosphorus 2.2 mg/dl (2.5-4.5) L 01/19/25 04:07
Magnesium 1.8 mg/dl (1.6-2.3) 01/19/25 04:07
Total Bilirubin 0.3 mg/dl (0.2-1.3) 01/18/25 04:30
AST 100 U/L (14-36) H 01/18/25 04:30
ALT 57 U/L (0-35) H 01/18/25 04:30
Alkaline Phosphatase 131 U/L (38-126) H 01/18/25 04:30
Lipase 147 U/L (23-300) 01/16/25 19:12
Vital Signs and I&O:
Vital Signs
Temp Pulse Resp BP Pulse Ox
98.0 F 103 22 133/72 100
01/19/25 00:24 01/19/25 03:00 01/19/25 03:00 01/19/25 03:00 01/19/25 03:00
I&O
01/17/25 01/18/25 01/19/25
06:59 06:59 06:59
Intake Total 2882.0 / 2992.7 3776.7 / 3776.7
Output Total 1360 / 1380 1350 / 1350
Balance 1522.0 / 1612.7 2426.7 / 2426.7
Physical Exam
Physical Exam
General: NAD
Abdomen: normal bowel sounds, soft, mild epigastric tenderness, no masses or bruits, no ascites
[2025-01-19 06:02] LABS: Hematocrit 28.0 % (37.0-47.0); Hemoglobin 8.8 g/dL (12.0-16.0)
--- NOTE | 2025-01-19 06:06 | PTCARENOTE ---
Addendum entered by Jolanta Ordonez RN 01/19/25 06:22:
weaned to 2 liters NC.
Original Note:
NO change from previous assessment. Continues with sternal pain from chest compressions-prn dilaudid administered. Plan for pacemaker today.
[2025-01-19] MEDS: CARAFATE SUSPENSION 1 GM TUBE ×2 (08:14→13:41)
[2025-01-19] MEDS: NSS (PRESERVATIVE FREE) 10 ML IV ×2 (08:14→19:56)
[2025-01-19] MEDS: LIDOCAINE 4% PATCH 1 PATCH TOPICAL (08:14)
[2025-01-19] MEDS: PROTONIX IV 40 MG IV ×2 (08:14→19:56)
[2025-01-19] MEDS: FARXIGA 10 MG TUBE (08:14)
--- NOTE | 2025-01-19 08:28 | W.PN.INTV ---
Addendum entered and electronically signed by Glen Johnson MD 01/19/25 17:20:
CDI inquiry response:
Shock was due to a mixture of hypovolemia, cardiogenic and distributive in setting of recent sedation s/p propofol given during intubation
Original Note:
Today's Communication / Plan
Recommendations
Extubated yesterday and breathing comfortably on room air, saturating well
Okay to stop dextrose containing fluids as serum bicarbonate level is now >18
For PPM today
Heparin drip off; defer to cardiology when appropriate to resume anticoagulation
Remove NGT as patient can safely swallow (per nursing)
Maintain MAP >65
Once patient returns from her PPM implantation procedure, she can be downgraded to IVU assuming procedure has no immediate complications and she remains hemodynamically stable. Once downgraded, then Staff Air Defense Officer/Pulmonary service will sign off.
Please call back with questions or concerns.
Assessment
-
Assessment: 79-year-old F with PMHx of A-fib/A-flutter on Eliquis, hypertension, hypercholesterolemia, history of Zoraida-en-Y bypass with history of anastomotic ulcer, history of CVA, NIDDM, former tobacco smoker, CAD s/p CABG and history of
bioprosthetic AVR who presented with weakness with increased fatigue, decreased appetite and abdominal discomfort. Patient has had reduced oral intake for the 48 hours TUFTER. She was recently hospitalized at both [facility] over the last
month with recently diagnosed A-fib started on Eliquis. Patient presented here with abdominal pain and CT abdomen/pelvis suggested gastritis with a suspected small ulcer at the level of the gastrojejunostomy. Patient developed unstable tachycardia
due to A-fib/flutter with RVR, and cardiology performed ROSITA with cardioversion on 01/17. After patient was shocked with 50 J, she developed asystole and CPR/ACLS performed with ROSC shortly thereafter achieved. Patient transferred to the ICU for
further care and Staff Air Defense Officer service consulted for additional management/recommendations.
Chronic conditions TUFTER: A-fib/a flutter on Eliquis, hypertension, history of Zoraida-en-Y bypass with history of anastomotic ulcer, history of breast cancer s/p mastectomy/XRT on letrozole, history of CVA, hypercholesterolemia, NIDDM, history of
syncope, pancreatic atrophy, history of colon polyps, former tobacco smoker, CAD s/p CABG, history of bioprosthetic AVR
Impression:
#In-hospital cardiac arrest s/p cardioversion with ROSC after 2nd round of CPR
#Rapid A-fib s/p RSOITA with DCCV with subsequent bradycardia due to slow a-fib vs junctional escape rhythm
#Circulatory shock � likely due to bradycardia + sedation given for intubation during IHCA in the setting of hypovolemia (reduced PO intake TUFTER) - shock state now resolved
#Starvation ketoacidosis
#Abdominal pain with reduced appetite TUFTER (also reported non-compliance to NOAC due to her symptoms)
#JAVID (however patient may also have CKD and baseline is currently unknown)
#Elevated troponin likely due to demand ischemia
#Anemia
#History of gastrojejunal anastomotic ulcer s/p Zoraida-en-Y bypass
#History of CAD s/p CABG
#History of bioprosthetic AVR
#History of CVA
#NIDDM
Plan:
- Patient underwent ROSITA with cardioversion on 01/17 and after patient shocked with 50 J her rhythm degraded into asystole and ROSC achieved after patient was given atropine +1 mg epinephrine (total) with subsequent rhythm bradycardia due to slow
A-fib versus junctional escape rhythm.
- Cautiously continue heparin gtt while trending H/H
- Trend H/H and transfuse if needed to keep Hb>7g/dL; keep plt>50k (given suspected small anastomotic ulcer on CT abdomen/pelvis from admission) - no current signs of bleeding
- Cardiology on board and recs appreciated - awaiting PPM today (01/19)
- Replete electrolytes with K>4, Mg>2
- Echo performed at bedside in ICU on 01/17, showing normal biventricular size and systolic function with no regional WMA. History of bioprosthetic aortic valve replacement. Peak/mean gradients across aortic valve are 25/17 mmHg, respectively. No
AI appreciated. Moderate TR with PASP mildly elevated at 32 mmHg
- Troponin peaked at 1.52 (shot up to >1 in the setting of recent CPR) -no longer need to continue trending at this time given that it has started to downtrend today
-Patient was extubated yesterday and has been doing well, now on room air saturating 95%
- Keep SpO2 >90-94%, using supplemental O2 if needed
- Aspiration precautions; keep HOB >30-45�
- prn nebulized bronchodilators - not currently bronchospastic
- Keep MAP>65
- She may have PAD as her DBP has been low and her lower extremities appear mottled (L>R) ever since ROSC; extremities appear less mottled since yesterday (01/18)
- Consider CECE
- Given additional 1L NS 0.9% bolus once arrived to ICU and continued with maintenance fluids; of note, bedside echo performed while in ICU s/p ROSC, and EF 60-65%
- SHe was continued on crystalloids + D5 water given concern for starvation ketoacidosis - -> her serum bicarbonate level as of today (01/19) has now normalized. Can stop D5W now and encourage PO intake
- Trend LFTs
- Trend sCr and monitor UOP
- Given her suspected ulcer on imaging, GI has been consulted
- No current clinical signs of bleeding - continue to monitor
- Continue PPI 40mg IV q12hr -- -> deferred to GI/hospitalist team when appropriate to transition to PO PPI
- Outpatient medical records requested from [facility]
- Maintain euglycemia with goal BG 140-180; HbA1c: 6.2 on 01/17/2025
- DVT ppx: Now off heparin gtt pending her PPM; defer to cardiology when it is ok to resume AC
Code status: Full code
Daughter updated at bedside (Denisa), and all questions were answered to her satisfaction.
Once patient returns from her procedure, she can be downgraded to IVU. Once downgraded, then Staff Air Defense Officer/Pulmonary service will sign off. Thank you for allowing us to be involved in the care of this patient and please call back with questions or
concerns.
Data:
CT abd/pelvis with IV contrast 01/16/2025:
1. There is thickening of the stomach and in the area of the gastrojejunostomy with findings suggesting gastritis and a possible small ulcer at the level of the gastrojejunostomy.
2. There is marked distention of the intrahepatic biliary ducts as well as the common bile duct. This could be related to previous cholecystectomy. Correlation with liver function tests is recommended.
Total time spent today was 57 minutes for this encounter. Time includes reviewing laboratory test/imaging results, reviewing pertinent medical records, obtaining and reviewing medical history, performing an appropriate exam, ordering medications,
tests and procedures. Time also includes documentation of this encounter, coordinating patient care and communicating with other healthcare professionals. Total time does not include separately billed tests performed on this date of service.
Subjective Dataa
Subjective Data
Date of Service:
Date of Service: January 19, 2025
Chief Complaint: Staff Air Defense Officer Follow Up
Subjective:
Patient was seen and evaluated this morning. Extubated yesterday. No acute events reported from overnight. Current heart rate is 104, BP 141/77 and she is resting comfortably on room air. Awaiting pacemaker today, which is causing her to feel
anxious.
Review of Systems
General: Other (Negative unless mentioned above)
Objective Data
Data Reviewed
Vital Signs / I&O / Oxygen:
Vital Signs
Temp Pulse Resp BP Pulse Ox
97.8 F 101 16 135/76 98
01/19/25 08:00 01/19/25 09:30 01/19/25 09:30 01/19/25 09:00 01/19/25 08:00
Intake and Output
01/18/25 01/19/25 01/20/25
06:59 06:59 06:59
Intake Total 2882.0 / 2992.7 4126.7 / 4301.7 525 / 525
Output Total 1360 / 1380 1620 / 1820 500 / 500
Balance 1522.0 / 1612.7 2506.7 / 2481.7
SaO2 [CPAP/PSV] 100
SaO2 [A/C] 100
SaO2 98
Nasal Cannula flow liters per 4
minute
Physical Exam
General: Respiratory Distress (negative), Comfortable, Chills (negative) and Sweats (negative)
HEENT: Normocephalic and Anicteric
Cardiovascular: Peripheral Edema (Trace bilateral lower extremity edema) and Other (normal heart rate)
Respiratory: Wheeze (negative), Crackles (Bibasilar), Rhonchi (negative) and Non-Labored Respirations
GI: Soft, Non Distended, Tender (Epigastric) and Normal Bowel Sounds
Neurology: Awake, Alert and Other (anxious at times)
Skin: Warm, Dry, Cyanosis (negative) and Jaundice (negative)
Labs/Micro/Reports
Lab Data
01/19/25 05:25
01/19/25 04:07
Laboratory Results
01/18/25 01/19/25
09:35 04:07
APTT 34.0
pH 7.28 L
pCO2 34
pO2 173 H
HCO3 16.0 L
O2 Delivery Level Not Reportable
Microbiology
01/17/25 21:15 Urine Urine Culture - Final
NO GROWTH
01/17/25 00:56 Blood/Venous Blood Culture - Preliminary
No Growth in 48 hours- Final report to follow
01/17/25 01:14 Blood/Venous Blood Culture - Preliminary
No Growth in 48 hours- Final report to follow
01/16/25 22:12 Nasal Swab Influenza Types A & B (TARA) - Final
Negative for Influenza A & B, NAAT
Negative results must be combined with clinical observations
and patient history.
Nucleic Acid Amplification test (NAAT)performed on the
[employer] platform.
--- NOTE | 2025-01-19 08:34 | PTCARENOTE ---
recd pt assessed. brightly interactive, reports feeling foggy over last few days and missing some events. aware of plans, NPO maintained. IV fluids infusing, heparin on hold. in good spirits. reports pain sternum, speaking with daughter on
phone.
--- NOTE | 2025-01-19 10:16 | CM ---
Maintained on Heparin Gtt.
For pacemaker placement.
NPO.
Extubated yesterday.
Baseline uses walker and has stair glide and lives with dgt.
Will need PT OT when medically ready .
PLAN Continue to assist and assess discharge needs
--- NOTE | 2025-01-19 10:53 | W.PN.CD ---
Today's Communication / Plan
-
- PPM today
Impression / Plan
-
I/P: 79F with atrial fibrillation/flutter (type unknown, noncompliant with apixaban), coronary artery disease s/p CABG, type 2 diabetes mellitus, not requiring insulin, CKD, and hypercholesterolemia presented to the emergency department with a chief
complaint of abdominal pain with AF/FL with EKG showing typical atrial flutter
Primary counseling services director: Dr. Duncan Schwartz ([place])
Atrial flutter, type unknown
- Typical atrial flutter based on the EKG morphology.
- Unresponsive to adenosine in the ER
- s/p ROSITA/DCCV 01/17/25 - long sinus arrest post cardioversion
- Now back in atrial flutter.
- sinus arrest noted with severe sick sinus syndrome and no sinus beat requiring resuscitation and code 9.
- Atrial fibrillation - likely persistent - High CHADSVasc score -8- age, gender, HTN, DM, CAD, CVA
- Non-compliant with Apixaban. High risk for stroke
- ROSITA was clear on 01/17/25
- Need for chronic anticoagulation-currently on Heparin
- PPM today
- Plan to start Eliquis tomorrow AM if OK with GI.
Sinus arrest
- s/p code 9
- Intubated and resuscitated - s/p now extubated -01/18/25
- Alert and oriented - consented fro PPM.
- Currently in sinus rhythm with frequent PACs and AT noted.
- With sinus arrest, will avoid Metoprolol at this time.
- Plan for PPM today
Abdominal pain
- Concern for ulcer, discussed with GI, hold apixaban, okay for heparin drip from GI perspective
- Prior cholecystectomy
Anemia, type unknown
- Prior gastric bypass, B12 and folate pending
CAD
- Stable without chest pain
- Status post CABG, with cardiac catheterization at [facility] as below
- Aggressive medical management
CKD, per outside records her baseline creatinine is 1.3�1.4
Type 2 diabetes mellitus, per primary service
Prior breast cancer, s/p XRT and chemotherapy
Hypercholesterolemia, rosuvastatin on hold with abdominal pain
SUBJECTIVE:
intubated but off sedation now. responding to voice. Off pressors.
DATA:
Transthoracic echocardiogram, 12/29/2024 (Dr. Siddiqui, [facility]):
LVEF 50%. Grade 1 DD.
Mildly dilated LA. Mild aortic valve stenosis. Normal RV systolic function.
Coronary angiography, 01/06/2025 (Dr. Mtz, [facility]):
Well compensated CAD with widely patent bypass grafts to the LAD and RCA territories.
Several minor branch vessels of the circumflex territory are collateralized and do not receive flow from the bypass graft and are best served by medical therapy.
LANCE�LAD widely patent. In the mid and far distal portion of the vessel there were mild to moderate nonflow-limiting focal stenosis of up to 50%.
SVG to the first major posterolateral branch is widely patent.
SVG to circumflex territory is 100% occluded at the ostium
Physical Exam
Vital Signs/Labs
Vital Signs
Temp Pulse Resp BP Pulse Ox
97.8 F 101 16 135/76 98
01/19/25 08:00 01/19/25 09:30 01/19/25 09:30 01/19/25 09:00 01/19/25 08:00
01/18/25 01/19/25 01/20/25
06:59 06:59 06:59
Actual Weight 74.1 kg 76.2 kg
01/19/25 05:25
01/19/25 04:07
PT 16.6 Sec (11.4-14.6) H 01/17/25 15:52
INR 1.32 01/17/25 15:52
APTT 34.0 Sec (23.4-35.0) 01/19/25 04:07
Magnesium 1.8 mg/dl (1.6-2.3) 01/19/25 04:07
Triglycerides Cancelled 01/17/25 16:03
LAB Results
01/17/25 01/17/25 01/17/25
05:10 12:50 15:54
Troponin I 0.042 H* 0.366 H* D 0.774 H* D
01/18/25 01/19/25
04:30 04:07
Troponin I 1.520 H* 0.819 H*
Physical Exam
Constitutional: No acute distress and Comfortable
EENT: Anicteric and Moist mucous membranes
Cardiovascular: Rhythm & rate is regular (AFL with RVR), Pedal edema is absent, JVD present and Systolic murmur present
Respiratory: Respiratory effort normal and Wheeze Absent
GI: Soft, Non tender and Normal bowel sounds
Neuro/Psych: Alert, Oriented, AO x 3 and Motor deficits absent
Other: Cardiac Device Site
Data Reviewed
-
Date of Service: January 19, 2025
Medical Decision Making: Reviewed Test Results, Test Interpretation and Review of Case with other Provider
EKG: Tracing Personally Visualized and interpreted
Echo: Report Reviewed by me
X-Ray/CT/US/MRI/NUC/PET: Image Personally Visualized and interpreted
Labs: Labs Reviewed by me
Old Records: Reviewed
Critical Care Time (in minutes): 32
--- NOTE | 2025-01-19 11:07 | W.PN.HOSP.TC ---
Addendum entered and electronically signed by Brett Humphries MD 01/19/25 13:22:
Multiple left anterolateral rib fractures
Original Note:
Today's Communication/Plan
-
see plan
Assessment / Plan
Assessment / Plan
Gen: NAD, AAOx3.
Eyes: EOMI, PERRLA, no scleral icterus.
Neck: supple.
CV: tachy, reg rhythm, +S1/S2, no m/r/g.
Resp: CTAB, no rales, wheezes, or rhonchi.
Abd: +BS, soft, NT, ND
Skin: No rashes.
Neuro: CN 2-12 intact, non-focal.
Psych: Normal mood and affect.
01/17 TTE:
1. Normal biventricular size and systolic function, with no regional wall motion abnormalities. Estimated LVEF 60-65%.
2. History of bio-prosthetic aortic valve replacement. Peak/mean gradients across the aortic valve are 25/17 mmHg respectively. No aortic valve regurgitation seen.
3. Moderate tricuspid regurgitation.
4. No prior study available for comparison.
01/17 ROSITA:
1. Normal left ventricular size, wall thickness and systolic function. Estimated LVEF 50-55%.
2. S/p bio-prosthetic aortic valve replacement. No aortic regurgitation.
3. Moderate tricuspid regurgitation.
4. No thrombus in ANGEAL.
5. We then proceeded to DCCV.
Aflutter with RVR (typical, unknown type):
-129AM called to bedside urgently by RN. Pt hadgiven Adenosine x 2 without resolution of tachycardia prior to my arrival 12/9AM. ECG reviewed with cardiology, currently aflutter with RVR. The pt had been noncompliant with Eliquis. s/p 3L NS. Pt
taken for TEECV on 01/17, ANGELA without thrombus, and after 50J had asystole. Given IV Atropine without ROSC. After CPR and epi x 1 ROSC was achieved. Pt transferred to ICU at that time intubated.
-TTE and ROSITA above
-cont heparin gtt (on hold for PPM)
-cards following, PPM today
Acute hypoxemic resp failure:
-intubated 01/17 as above, extubated 12/10PM
-Non-AG met acidosis improving
Abdominal pain and associated nausea:
-for 3-4 weeks
-PUD vs gastritis vs acute conversion disorder
-was on PPI gtt, now on PPI IV BID
-GI following, would prefer that pt have EGD here on 01/20
Other problems:
CKD3a
Hyponatremia, resolved
Leukocytosis, improving, likely reactive
h/o Breast CA
PUD: cont PPI
Of note the patient has been to multiple hospitals recently and I encouraged the patient on 01/17 to pick 1 health system and stick with it.
Anticipated Discharge: > 48 hours
Subjective/Interval History
-
Date of Service: January 19, 2025
Pt c/o pleuritic, sternal CP as well as coughing up phlegm.
Objective Data
-
Labs:
Laboratory Results
01/19/25 01/19/25
04:07 05:25
WBC 7.9
Hgb 7.0 L 8.8 L D
Hct 22.1 L 28.0 L
Plt Count 123 L
APTT 34.0
Sodium 135
Potassium 4.0
Chloride 112 H
Carbon Dioxide 20 L
BUN 10
Creatinine 1.1 H
Glucose 116 H
Calcium 7.7 L
Vital Signs:
Vital Signs
Temp Pulse Resp BP Pulse Ox
97.8 F 101 16 135/76 98
01/19/25 08:00 01/19/25 09:30 01/19/25 09:30 01/19/25 09:00 01/19/25 08:00
I&O
01/18/25 01/19/25 01/20/25
06:59 06:59 06:59
Intake Total 2882.0 / 2992.7 4126.7 / 4301.7 525 / 525
Output Total 1360 / 1380 1620 / 1820 500 / 500
Balance 1522.0 / 1612.7 2506.7 / 2481.7
--- NOTE | 2025-01-19 11:14 | PN.CDI ---
CDI
- -
CDI:
Physician Documentation Request
Admit Date: 01/17/25 01:55
Dear Doctor Yandel,
Please review the following and provide your response in the progress notes.
Clinical Indicators:
The diagnosis of Multiple left anterolateral rib fractures was included in the signed chest xray 01/17.
01/17 Patient underwent cardioversion. Notes states 'A single shock of 50 joules, synchronized, was delivered, after which time the patient's rhythm was asystole. She was given IV atropine, and when there was still no pulse, we called a code
9,started chest compressions. After a round chest compressions, 1 mg
of epinephrine was given followed by another round of chest compressions, after which ROSC was achieved'
Please indicate in your progress notes if you are in agreement that the above diagnosis is valid for this patient:
____ - Multiple left anterolateral rib fractures is a valid diagnosis (Please include it in your progress notes)
____ - Multiple left anterolateral rib fractures is not a valid diagnosis for this patient
____ - Other
Use of terms such as suspected, likely, concern for, or probable are acceptable for a diagnosis that is being evaluated, monitored or treated as if it exists and can be coded in the inpatient setting, when documented at the time of discharge.
Thank you,
Clair Hebert RN, BSN
CDI Specialist
tiger text
Please use your independent medical judgment in providing your response.
--- NOTE | 2025-01-19 11:19 | PN.CDI ---
CDI
- -
CDI:
Physician Documentation Request
Admit Date: 01/17/25 01:55
Dear Doctor Alex,
Progress notes states 'Circulatory shock � likely due to bradycardia + sedation given for intubation during IHCA in the setting of hypovolemia (reduced PO intake ATTACHER)
Please provide further specification to the type of shock:
Cardiogenic shock
Hypovolemic shock -
Shock other please specify
Other
Use of terms such as suspected, likely, concern for, or probable (associated with a specific diagnosis that is being evaluated, monitored, or treated as if it exists) are acceptable and can be coded in the inpatient setting, when documented at the
time of discharge.
Thank you,
Clair Hebert RN, BSN
CDI Specialist
tiger text
Please use your independent medical judgment in providing your response.
--- NOTE | 2025-01-19 11:36 | PTCARENOTE ---
microbiology lab analyst staff here, IV capped, taken off unit via bed in good spirits.
[2025-01-19 12:35] LABS: Glucose - Point of Care 123 mg/dl (70-99)
--- NOTE | 2025-01-19 13:18 | ITS.CL.PACE ---
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
Pacemaker Implant
Procedure Report:
Left Bundle Branch pacing Permanent Pacemaker Placement:
Ms. Bryant is a 79 years old woman with atrial fibrillation / flutter and post conversion sinus arrest s/p CPR resuscitation, now extubated with recurrent arhtyhmia has chronic LBBB and is recommended for conduction system pacemaker.
Indications:
Sinus arrest with LBBB
Date of the Procedure:
Pre-Operative Diagnosis: Sinus arrest with LBBB
Post-Operative Diagnosis: Sinus arrest with LBBB
Procedure Performed: Conduction system pacing for dual-chamber pacemaker implanted
Performing physician:
Hilton Latham MD
Assistants:
EP staff
Anesthesia:
See anesthesia records
Detailed Description of the Procedure:
The patient was identified using hospital identification and informed consent obtained for the procedure. The risks were explained to the patient and the family including, but not limited to: Bleeding, infection, arrhythmia, stroke,
vascular/cardiac/lung puncture, surgery, pacemaker dependency/device malfunction. All questions were answered.
Anesthesia service provided sedation as reported separately. Antibiotics administered IV for risk of bacterial colonization. After obtaining informed and written consent, the patient was brought to the electrophysiology laboratory.
The initial rhythm was supraventricular tachycardia.
A timeout was performed immediately before the procedure. The left chest was prepped from the nipple to the angle of the jaw with chlorhexidine, and draped following sterile technique in usual routine.
A surgical pause and time out was performed immediately prior to the procedure with review of her medical history, recent labs, allergies and medications with site of procedure identified and consent noted in the chart. Antibiotics pre operatively
given. All team members concurred.
Following infiltration with local anesthetic, the axillary vein was accessed under fluoro guidance using the micro-puncture apparatus. The guide wires were advanced to the inferior vena cava (IVC) under flouro guidance.
A subcutaneous pocket was created with blunt dissection and use of electrocautery. Hemostasis was excellent.
The guide wire was advanced to the RA and was advanced to the RV. The preformed curved long hemostatic peel away HIS sheath was advanced into the RV cavity. A left bundle pacing wire was advanced into the sheath to the tip with ventricular signals
noted with unipolar manner. The HIS location was identified under guidance of the flouroscopy and the pacing wire signals. The sheath with the pacing lead was moved deeper into the RV cavity on the septum at a more inferior and distal to the HIS
signals.
Once adequate signals were noted on the electrograms of the pacing lead in the sheath with W pattern signals on the RV septum, the lead was advanced and clockwise turns were done under fluoroscopic guidance. The septum was engaged and the lead was
paced intermittently after every 2-3 turns. There was sheath approximation confirmed on CAMILLA view and the pacing lead was advanced with clockwise turns into the septal location. The septum was successfully engaged. The lead was paced and septal
pacing was noted. The sheath was placed again to the septum and the lead was advanced 2-3 turns with pacing with each advancement. The ventricular capture was monitored throughout and the captures gradually changed from RV pacing to non-selective
pacing to LBB pacing with R wave on V1.
With RBBB pattern noted on the pacing lead, it was decided to accept the location as optimal location. The long guiding sheath was cut and removed from the RV without change in lead position, impedance, sensing, or capture.
The lead was sutured to the underlying pectoralis fascia with 2-0 Ethibond stitches. A purse string suture was deployed using the 2-0 Vicryl suture.
Then the right atrial lead was implanted. The RA lead was anchored in the right atrial appendage with engaging the active-fixation apparatus. There was excellent sensing, pacing, and impedance from the leads, with no diaphragmatic stimulation at 10
V output.�Bovie cautery, antibiotics, and fluoroscopy were used.
The leads were attached to the pulse generator in standard configuration with acceptable sensing and threshold parameters. The pocket was irrigated with antibiotic solution; the pocket was inspected with no active bleeding noted. The device and the
leads were placed in the pocket.
A Tyrx pouch was placed around the device and the leads.
The device was secured to the underlying fascia using 2-0 Ethibond suture.
Deep subcutaneous tissues were closed with 3 layers of 2-0V loc sutures; and the dermis was reopposed using a running 4-0 Biosyn subcuticular suture. Sponge counts / sharp counts were appropriate.
Procedure End:
The procedure was tolerated well. Aquacel bandaged was applied. A pressure dressing was applied.
Estimated Blood loss:
5 cc
Specimens Removed:
No cultures and no specimens were obtained. No intraoperative pathology was identified.
Urine output:
None
Packs / Drains/ Tubes:
None
Instrument / Sponge Count Correct:
Yes
Flouro time:
5.9min / 10.15 mGy
Complications of the Procedure:
None
Condition of Patient at Time of Transfer:
Hemodynamically stable with no neurological or vascular compromise.
Device information:�
Generator: [employer]; Model: W1DR01; Serial # [id number]
Atrial Lead: [employer]; Model: 5076-52; Serial # [id number]
Measured data in the right atrium was sensing of 2.0 mV, impedance of 665ohms and threshold of 0.75 V at 0.4ms�
LBB pacing lead: Medtronic; Model: 3830-69; Serial # [id number]
Measured data on the RV lead was sensing of 11.6 mV, impedance of 646 ohms and threshold of 0.5V at 0.4ms
PROGRAMMING PARAMETERS:�
Gutierrez parameter settings were DDDR 60-130 �
Paced AV interval: 140ms
Sensed AV interval: 120 ms.
Rate Adaptive A-V Interval: off
Mode switch ON
Summary:
Successful implantation of MRI compatible LBB pacing dual chamber pacemaker.
Results/Recommendations:
-Please follow up CXR�
1. Please provide patient with adequate pain control�
2. Start Metoprolol and digoxin for rhythm and rate control.
3. No Heparin. Ok to start Eliquis when acceptable
Instructions to be given to patient:�
- Please follow up with [facility] at [address] [place] [address] ([phone]) to get your wound checked in 2 weeks of your discharge. Then follow with
- Do not wet incision site until after it is evaluated at cardiology clinic. No baths or showers until then. Sponge baths / showers are OK but dab dry the dressing after it is wet.�
- Allow 'steri strips' to fall off on their own�
- Do not lift left elbow above shoulder, particularly with sudden jerking movements, for 1 month�
- Do not lift anything weighing more than 5 pounds with the left arm for 1 month�
- If you notice any fevers, shortness of breath, lightheadedness, chest pain, or worsening swelling in the wound site, please contact the arrhythmia clinic, contact your salesperson shoes, or present to the hospital for evaluation.�
Hilton Latham MD
Electrophysiology
--- NOTE | 2025-01-19 14:00 | PTCARENOTE ---
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 VS noted. IV fluids infusing as ordered.
[2025-01-19] MEDS: NEUTRA-PHOS POWDER PACKET 500 MG PO (14:04)
[2025-01-19] MEDS: LANOXIN 250 MCG IV (14:05)
[2025-01-19] MEDS: TOPROL XL 50 MG PO (14:05)
--- NOTE | 2025-01-19 15:04 | PTCARENOTE ---
taken to radiology for chest in department, tolerated, a bit unsteady transferring and standing, presently comfortable in bed eating lunch.
[2025-01-19 17:30] LABS: Glucose - Point of Care 277 mg/dl (70-99)
[2025-01-19] MEDS: CARAFATE SUSPENSION 1 GM PO ×2 (17:44→19:56)
[2025-01-19] MEDS: NOVOLOG FLEXPEN-LOW RESISTANCE 3 UNITS SC (17:44)
[2025-01-19 18:00] LABS: Hemoglobin 7.9 g/dL (12.0-16.0)
[2025-01-19] MEDS: REMOVE LIDOCAINE PATCH 1 PATCH REMOVE (19:57)
[2025-01-19 21:16] LABS: Glucose - Point of Care 213 mg/dl (70-99)
[2025-01-20] VITALS (23 sets, daily range): BP systolic 116–157; BP diastolic 66–120; PULSE 92; O2SAT 99; BMI 26.3
--- NOTE | 2025-01-20 02:56 | PTCARENOTE ---
Assumed care at 1900. Vpaced on the monitor. Left arm immobilizer in place x24 hours. Left upper chest pacemaker site with antibacterial aquacell dressing intact. Patient very confused and anxious overnight, continuously attempting to get OOB
without assistance and use left arm. Frequent redirecting required. See worklist for nursing shift assessment details.
[2025-01-20 04:27] LABS: Blood Urea Nitrogen 11 mg/dl (7-17); Calcium 8.1 mg/dl (8.4-10.2); Carbon Dioxide 18 mmol/L (22-30); Chloride 109 mmol/L (98-107); Estimated Creatinine Clearance 38 ml/min; Glucose 139 mg/dl (70-99); Magnesium 1.9 mg/dl (1.6-2.3); Potassium 4.2 mmol/L (3.5-5.1); Sodium 134 mmol/L (135-145); eGFR 46.62
[2025-01-20 05:03] LABS: Hematocrit 23.6 % (37.0-47.0); Hemoglobin 7.7 g/dL (12.0-16.0); Mean Corp Hgb Conc. 32.6 g/dL (33.0-37.0); Mean Corpuscular Volume 90.1 fL (81.0-99.0); Platelet Count 169 10^3/uL (130-400); Red Cell Dist. Width 15.0 % (11.5-14.5)
[2025-01-20 08:06] LABS: Glucose - Point of Care 142 mg/dl (70-99)
--- NOTE | 2025-01-20 08:59 | W.PN.HOSP.TC ---
Today's Communication/Plan
-
see plan
Assessment / Plan
Assessment / Plan
Gen: NAD, Awake and alert
Eyes: EOMI, PERRLA, no scleral icterus.
Neck: supple.
CV: RRR, +S1/S2, no m/r/g.
Resp: CTAB anteriorly, no rales, wheezes, or rhonchi.
Abd: remains +BS, soft, NT, ND
Skin: No rashes.
Neuro: CN 2-12 intact, non-focal.
Psych: Normal mood and affect.
01/17 TTE:
1. Normal biventricular size and systolic function, with no regional wall motion abnormalities. Estimated LVEF 60-65%.
2. History of bio-prosthetic aortic valve replacement. Peak/mean gradients across the aortic valve are 25/17 mmHg respectively. No aortic valve regurgitation seen.
3. Moderate tricuspid regurgitation.
4. No prior study available for comparison.
01/17 ROSITA:
1. Normal left ventricular size, wall thickness and systolic function. Estimated LVEF 50-55%.
2. S/p bio-prosthetic aortic valve replacement. No aortic regurgitation.
3. Moderate tricuspid regurgitation.
4. No thrombus in ANGELA.
5. We then proceeded to DCCV.
EGD 01/20/25:
- Z-line regular.
- 4 cm hiatal hernia.
- Multiple gastric polyps.
- Erythematous and atrophic mucosa in the gastric body.
- A gastrojejunostomy was found, characterized by an intact staple
line and ulceration.
- Non-bleeding jejunal ulcers with a flat pigmented spot (Dieter
Class IIc) Hemostatic spray applied. Injected.
- No specimens collected.
Abdominal pain and associated nausea:
-for 3-4 weeks
-EGD above, notable for ulceration of gastrojejunostomy anastomosis, nonbleeding jejunal ulcers
-pt needs surgical eval (outpt as long as Hb remains stable) for revision of gastrojejunostomy
-was on PPI gtt, now on PPI IV BID
-cont Carafate
-GI following
-can start clears at 1800 today
-hold Eliquis today, resume tomorrow if Hb stable
Aflutter with RVR (typical, unknown type):
-9AM called to bedside urgently by RN. Pt hadgiven Adenosine x 2 without resolution of tachycardia prior to my arrival M. ECG reviewed with cardiology, currently aflutter with RVR. The pt had been noncompliant with Eliquis. s/p 3L NS. Pt
taken for TEECV on 01/17, ANGELA without thrombus, and after 50J had asystole. Given IV Atropine without ROSC. After CPR and epi x 1 ROSC was achieved. Pt transferred to ICU at that time intubated.
-TTE and ROSITA above
-cont heparin gtt (on hold for EGD)
-cards following
-s/p PPM 01/19
Acute hypoxemic resp failure:
-intubated 01/17 as above, extubated 12/10PM
-Non-AG met acidosis persists but overall improved
Other problems:
CKD3a
Hyponatremia, mild
Leukocytosis, resolved, was likely reactive
h/o Breast CA
PUD: cont PPI
Of note the patient has been to multiple hospitals recently and I encouraged the patient on 01/17 to pick one health system and stick with it.
FULL/SCDs
Anticipated Discharge: 24 - 48 hours
Subjective/Interval History
-
Date of Service: January 20, 2025
No new complaints.
Objective Data
-
Labs:
Laboratory Results
01/20/25
03:31
WBC 10.0
Hgb 7.7 L
Hct 23.6 L
Plt Count 169 D
Sodium 134 L
Potassium 4.2
Chloride 109 H
Carbon Dioxide 18 L
BUN 11
Creatinine 1.2 H
Glucose 139 H
Calcium 8.1 L
Vital Signs:
Vital Signs
Temp Pulse Resp BP Pulse Ox
97.9 F 91 17 137/86 94
01/20/25 04:45 01/20/25 05:00 01/20/25 05:00 01/20/25 05:00 01/20/25 05:00
I&O
01/19/25 01/20/25 01/21/25
06:59 06:59 06:59
Intake Total 4126.7 / 4301.7 1340 / 1340
Output Total 1620 / 1820 1250 / 1250
Balance 2506.7 / 2481.7 90 / 90
--- NOTE | 2025-01-20 11:40 | W.PN.CD ---
Today's Communication / Plan
-
Begin systemic therapeutic anticoagulation as soon as is medically acceptable
Looks like Eliquis to start 01/21/2025
Followup in our office arranged
Impression / Plan
-
Background: 79F with atrial fibrillation/flutter (type unknown, noncompliant with apixaban), coronary artery disease s/p CABG, type 2 diabetes mellitus, not requiring insulin, CKD, and hypercholesterolemia presented to the emergency department with
a chief complaint of abdominal pain with AF/FL with EKG showing typical atrial flutter
Primary tie knitter helper: Dr. Duncan Schwartz ([place])
Typical atrial flutter
Atrial fibrillation, suspected persistent
RSOITA/DCCV 01/17/25
Eliquis on hold, anticipate hospitalist will restart 01/21/2025
Nonischemic myocardial injury, peak troponin 1.5 on 01/18/2025
Long sinus arrest post cardioversion => Sick sinus => pacemaker 01/19/2025
Noncompliant with apixaban
LBBB
Pacemaker placed 01/19/2025, Medtronic, conduction system
By echo report: Hx of Bio AVR
Abdominal pain
- Concern for ulcer, discussed with GI, hold apixaban, okay for heparin drip from GI perspective
- Per Hospitalist note:
'-EGD above, notable for ulceration of gastrojejunostomy anastomosis, nonbleeding jejunal ulcers
-pt needs surgical eval (outpt as long as Hb remains stable) for revision of gastrojejunostomy
-was on PPI gtt, now on PPI IV BID
Prior cholecystectomy
Prior gastric bypass
Anemia, type unknown (B12/folate 01/17/2025 look OK)
CAD, s/p CABG, see last cath below
CKD, per outside records her baseline creatinine is 1.3�1.4
Type 2 diabetes mellitus, per primary service
Prior breast cancer, s/p XRT and chemotherapy
Hypercholesterolemia, rosuvastatin on hold with abdominal pain
Subjective:
Extubated, in ICU, looks comfortable.
DATA:
Pacemaker placed 01/19/2025, Medtronic, conduction system
Echo :
SUMMARY
1. Normal biventricular size and systolic function, with no regional wall motion abnormalities. Estimated LVEF 60-65%.
2. History of bio-prosthetic aortic valve replacement. Peak/mean gradients across the aortic valve are 25/17 mmHg respectively. No aortic valve regurgitation seen.
3. Moderate tricuspid regurgitation.
4. No prior study available for comparison.
CT abd/pelvis with IV contrast 01/16/2025:
1. There is thickening of the stomach and in the area of the gastrojejunostomy with findings suggesting gastritis and a possible small ulcer at the level of the gastrojejunostomy.
2. There is marked distention of the intrahepatic biliary ducts as well as the common bile duct. This could be related to previous cholecystectomy. Correlation with liver function tests is recommended.
ROSITA 01/17/2025
SUMMARY
1. Normal left ventricular size, wall thickness and systolic function. Estimated LVEF 50-55%.
2. S/p bio-prosthetic aortic valve replacement. No aortic regurgitation.
3. Moderate tricuspid regurgitation.
4. No thrombus in ANGELA.
5. We then proceeded to [facility].
Transthoracic echocardiogram, 12/29/2024 (Dr. Siddiqui, [facility]): LVEF 50%. Grade 1 DD. Mildly dilated LA. Mild aortic valve stenosis. Normal RV systolic function.
Coronary angiography, 01/06/2025 (Dr. Mtz, [facility]):
Well compensated CAD with widely patent bypass grafts to the LAD and RCA territories.
Several minor branch vessels of the circumflex territory are collateralized and do not receive flow from the bypass graft and are best served by medical therapy.
LANCE�LAD widely patent. In the mid and far distal portion of the vessel there were mild to moderate nonflow-limiting focal stenosis of up to 50%.
SVG to the first major posterolateral branch is widely patent.
SVG to circumflex territory is 100% occluded at the ostium
Physical Exam
Vital Signs/Labs
Vital Signs
Temp Pulse Resp BP Pulse Ox
97.9 F 91 17 137/86 94
01/20/25 04:45 01/20/25 05:00 01/20/25 05:00 01/20/25 05:00 01/20/25 05:00
01/19/25 01/20/25 01/21/25
06:59 06:59 06:59
Actual Weight 76.2 kg 76.2 kg
01/20/25 03:31
01/20/25 03:31
PT 16.6 Sec (11.4-14.6) H 01/17/25 15:52
INR 1.32 01/17/25 15:52
APTT 34.0 Sec (23.4-35.0) 01/19/25 04:07
Magnesium 1.9 mg/dl (1.6-2.3) 01/20/25 03:31
Triglycerides Cancelled 01/17/25 16:03
LAB Results
01/17/25 01/17/25 01/18/25
12:50 15:54 04:30
Troponin I 0.366 H* D 0.774 H* D 1.520 H*
01/19/25
04:07
Troponin I 0.819 H*
Physical Exam
Constitutional: No acute distress
EENT: Anicteric
Cardiovascular: Rhythm & rate is regular and Pedal edema is absent
Respiratory: Respiratory effort normal and Lungs clear to auscul.
GI: Soft and Distention absent
Neuro/Psych: Alert
Other: Cardiac Device Site (pacer site is good. dressing is dry)
Data Reviewed
-
Date of Service: January 20, 2025
[2025-01-20] MEDS: NOVOLOG FLEXPEN-LOW RESISTANCE SC ×3 (12:00→18:38)
[2025-01-20] MEDS: CRESTOR PO (12:01)
[2025-01-20] MEDS: CARAFATE SUSPENSION PO ×3 (12:01→18:38)
[2025-01-20] MEDS: FARXIGA PO (12:02)
[2025-01-20 12:20] LABS: Glucose - Point of Care 124 mg/dl (70-99)
[2025-01-20] MEDS: LIDOCAINE 4% PATCH 1 PATCH TOPICAL (12:30)
[2025-01-20] MEDS: LANOXIN 125 MCG PO (12:32)
[2025-01-20] MEDS: TOPROL XL 50 MG PO (12:32)
[2025-01-20] MEDS: PROTONIX IV 40 MG IV ×2 (12:35→21:02)
[2025-01-20] MEDS: NSS (PRESERVATIVE FREE) 10 ML IV ×2 (12:38→21:02)
--- NOTE | 2025-01-20 12:43 | PTCARENOTE ---
Assumed care . patient in bed. IVU level of care. Takine to EEG . NPO overnight. Returned s/p EEG. . Clear liquid starting
--- NOTE | 2025-01-20 13:36 | CM ---
F/U: Hospitalist stated that patient may be ready for DC this weekend. FLAVIO Middleton spoke to Daughter (Dtr) Denisa, she feels that patient will do better at home. Thus, she chose [facility]. Referral was made via [employer] and Order was sent
via fax to them: F: #[phone]. IMM completed with daughter. PLAN: Home with [facility]
--- NOTE | 2025-01-20 15:08 | PN.CDI ---
CDI
- -
CDI:
Physician Documentation Request
Admit Date: 01/17/25 01:55
Dear Doctor Yandel,
01/19 progress notes states 'Multiple left anterolateral rib fractures'
01/17 01/17 Patient underwent cardioversion. Notes states 'A single shock of 50 joules, synchronized, was delivered, after which time the patient's rhythm was asystole. She was given IV atropine, and when there was still no pulse, we called a code
9,started chest compressions. After a round chest compressions, 1 mg
of epinephrine was given followed by another round of chest compressions, after which ROSC was achieved'
Please clarify if relationship exist between these conditions:
Yes, multiple left rib fracture are related to/associated with/due to chest compression and cardiopulmonary resuscitation
No, multiple left rib fracture are not related to/associated with/due to chest compression and cardiopulmonary resuscitation
Unable to determine
Use of terms such as suspected, likely, concern for, or probable (associated with a specific diagnosis that is being evaluated, monitored, or treated as if it exists) are acceptable and can be coded in the inpatient setting, when documented at the
time of discharge.
Thank you,
Clair Hebert RN, BSN
CDI Specialist
tiger text
Please use your independent medical judgment in providing your response.
--- NOTE | 2025-01-20 17:09 | PTCARENOTE ---
Patient transfer to room 414 via bed. patient called her daughter Mag to make her aware.
At time of transfer, patient AAO x 3 denies pain
Normal Sinus Rhythm 75+V-P , Blood pressure stable (see downloads) No edema
Lungs clear, no sob no cough. IS encouraged
Abdomen round Normal bowel sound, External hemorrhage no bleeding noted. Large bowel movement dark brown
Voiding on bedpan
poor safety awareness, pt requires to have bed alarm for safety
[2025-01-20 17:46] LABS: Glucose - Point of Care 114 mg/dl (70-99)
[2025-01-20] MEDS: CARAFATE SUSPENSION 1 GM PO (21:01)
[2025-01-20] MEDS: REMOVE LIDOCAINE PATCH 1 PATCH REMOVE (21:01)
[2025-01-20 21:03] LABS: Glucose - Point of Care 184 mg/dl (70-99)
[2025-01-21 03:16] VITALS: BP 135/68
[2025-01-21 04:30] LABS: Hematocrit 24.0 % (37.0-47.0); Hemoglobin 7.7 g/dL (12.0-16.0); Mean Corp Hgb Conc. 32.1 g/dL (33.0-37.0); Mean Corpuscular Volume 87.9 fL (81.0-99.0); Platelet Count 182 10^3/uL (130-400); Red Cell Dist. Width 15.2 % (11.5-14.5)
[2025-01-21 04:55] LABS: Blood Urea Nitrogen 10 mg/dl (7-17); Calcium 8.5 mg/dl (8.4-10.2); Carbon Dioxide 22 mmol/L (22-30); Chloride 109 mmol/L (98-107); Estimated Creatinine Clearance 38 ml/min; Glucose 102 mg/dl (70-99); Potassium 4.0 mmol/L (3.5-5.1); Sodium 135 mmol/L (135-145); eGFR 46.62
[2025-01-21 07:25] VITALS: BP 131/76
[2025-01-21 07:54] LABS: Glucose - Point of Care 100 mg/dl (70-99)
[2025-01-21] MEDS: NOVOLOG FLEXPEN-LOW RESISTANCE SC (08:10)
--- NOTE | 2025-01-21 08:33 | W.PN.CD ---
Today's Communication / Plan
-
L pectoral PPM site stable
Anticoagulation with eliquis when stable. Hgb 7.7
f/u for IC on chart but pt follows with outside house carpenter helper as well
Impression / Plan
-
Background: 79F with atrial fibrillation/flutter (type unknown, noncompliant with apixaban), coronary artery disease s/p CABG, type 2 diabetes mellitus, not requiring insulin, CKD, and hypercholesterolemia presented to the emergency department with
a chief complaint of abdominal pain with AF/FL with EKG showing typical atrial flutter
Primary house carpenter helper: Dr. Duncan Schwartz ([place])
Typical atrial flutter
Atrial fibrillation, suspected persistent
ROSITA/DCCV 01/17/25 , tele stable, CIVIL ENGINEERING DRAFTSPERSON 80's
Eliquis on hold, given GI issues hgb last few days 01/19 7.9, 01/20 7,7, 01/21 7.7
Nonischemic myocardial injury, peak troponin 1.5 on 01/18/2025
Long sinus arrest post cardioversion => Sick sinus => pacemaker 01/19/2025
PPM site with dressing intact , no hematoma
Had been Noncompliant with apixaban
LBBB
Pacemaker placed 01/19/2025, Medtronic, conduction system
By echo report: Hx of Bio AVR
Abdominal pain
- Concern for ulcer, discussed with GI, hold apixaban,
- Per Hospitalist note:
'-EGD above, notable for ulceration of gastrojejunostomy anastomosis, nonbleeding jejunal ulcers
-pt needs surgical eval (outpt as long as Hb remains stable) for revision of gastrojejunostomy
-was on PPI gtt, now on PPI IV BID
Prior cholecystectomy
Prior gastric bypass
Anemia, type unknown (B12/folate 01/17/2025 look OK)
CAD, s/p CABG, see last cath below
CKD, per outside records her baseline creatinine is 1.3�1.4
Type 2 diabetes mellitus, per primary service
Prior breast cancer, s/p XRT and chemotherapy
Hypercholesterolemia, rosuvastatin on hold with abdominal pain
Subjective:
She offers no complaints this am. No pain or discomfort at PPM L pectoral site.
DATA:
Pacemaker placed 01/19/2025, Medtronic, conduction system
Echo :
SUMMARY
1. Normal biventricular size and systolic function, with no regional wall motion abnormalities. Estimated LVEF 60-65%.
2. History of bio-prosthetic aortic valve replacement. Peak/mean gradients across the aortic valve are 25/17 mmHg respectively. No aortic valve regurgitation seen.
3. Moderate tricuspid regurgitation.
4. No prior study available for comparison.
CT abd/pelvis with IV contrast 01/16/2025:
1. There is thickening of the stomach and in the area of the gastrojejunostomy with findings suggesting gastritis and a possible small ulcer at the level of the gastrojejunostomy.
2. There is marked distention of the intrahepatic biliary ducts as well as the common bile duct. This could be related to previous cholecystectomy. Correlation with liver function tests is recommended.
ROSITA 01/17/2025
SUMMARY
1. Normal left ventricular size, wall thickness and systolic function. Estimated LVEF 50-55%.
2. S/p bio-prosthetic aortic valve replacement. No aortic regurgitation.
3. Moderate tricuspid regurgitation.
4. No thrombus in ANGELA.
5. We then proceeded to [facility].
Transthoracic echocardiogram, 12/29/2024 (Dr. Siddiqui, [facility]): LVEF 50%. Grade 1 DD. Mildly dilated LA. Mild aortic valve stenosis. Normal RV systolic function.
Coronary angiography, 01/06/2025 (Dr. Mtz, [facility]):
Well compensated CAD with widely patent bypass grafts to the LAD and RCA territories.
Several minor branch vessels of the circumflex territory are collateralized and do not receive flow from the bypass graft and are best served by medical therapy.
LANCE�LAD widely patent. In the mid and far distal portion of the vessel there were mild to moderate nonflow-limiting focal stenosis of up to 50%.
SVG to the first major posterolateral branch is widely patent.
SVG to circumflex territory is 100% occluded at the ostium
Physical Exam
Vital Signs/Labs
Vital Signs
Temp Pulse Resp BP Pulse Ox
97.6 F 85 16 131/76 97
01/21/25 07:25 01/21/25 07:25 01/21/25 07:25 01/21/25 07:25 01/21/25 07:25
01/20/25 01/21/25 01/22/25
06:59 06:59 06:59
Actual Weight 76.2 kg
01/21/25 04:13
01/21/25 04:13
PT 16.6 Sec (11.4-14.6) H 01/17/25 15:52
INR 1.32 01/17/25 15:52
APTT 34.0 Sec (23.4-35.0) 01/19/25 04:07
Magnesium 1.9 mg/dl (1.6-2.3) 01/20/25 03:31
Triglycerides Cancelled 01/17/25 16:03
LAB Results
01/19/25
04:07
Troponin I 0.819 H*
Physical Exam
Cardiovascular: Rhythm & rate is regular and Pedal edema is absent
Respiratory: Respiratory effort normal and Lungs clear to auscul.
Neuro/Psych: Alert and Oriented (forgetful)
Other: Cardiac Device Site
L pectoral PPM site with dressing intact, no hematoma.
Data Reviewed
-
Date of Service: January 21, 2025
EKG: Other (Tele: SR with CIVIL ENGINEERING DRAFTSPERSON 80 bpm)
Labs: Labs Reviewed by me
[2025-01-21] MEDS: FARXIGA 10 MG PO (08:46)
[2025-01-21] MEDS: LIDOCAINE 4% PATCH 1 PATCH TOPICAL (08:46)
[2025-01-21] MEDS: CRESTOR 20 MG PO (08:46)
[2025-01-21] MEDS: CARAFATE SUSPENSION 1 GM PO ×2 (08:47→12:07)
[2025-01-21] MEDS: NSS (PRESERVATIVE FREE) 10 ML IV (08:47)
[2025-01-21] MEDS: PROTONIX IV 40 MG IV (08:47)
[2025-01-21] MEDS: TOPROL XL 50 MG PO (08:47)
--- NOTE | 2025-01-21 09:37 | W.PN.GI.CBS2 ---
Addendum entered and electronically signed by Francisca Simms, 01/21/25 10:10:
The patient was seen and examined by me independently in collaboration with the nurse practitioner.
Past medical history/social history/medications/allergies/family history reviewed.
Lab data and imaging data reviewed.
Patient seen in follow-up. She looks and feels better this morning. Minimal tenderness in epigastrium, states it has improved. Discussed findings from her EGD at length with her, 2 ulcers, one very large anastamotic ulcer, almost circumferential,
not amenable to endoscopic intervention. Given her ongoing anemia, I treated with epi and applied hemospray. Needs bariatric surgery evaluation for revision--provided her with a surgeons info from [facility], she is interested in going there. His
contact information is listed in her d/c paperwork for her.
A/P:
Advance diet
Pantoprazole 40mg BID x8 weeks then daily indefinitely
Continue carafate BID
Okay to resume eliquis today, monitor hemoglobin and stools, if she does have active bleeding would recommend CTA and IR consult as her large marginal ulcer is NOT amenable to endoscopic intervention and already discussed with Dr. Worthy-- unable to
place an ovesco clip
Will add on LFTs today, suspect related to hemodynamics
GI will sign off, please call with questions
Original Note:
Today's Communication / Plan
-
PLAN
Etiology of abdominal pain with concern for anatomic ulcer -as noted on EGD
s/p treatment with hemospray and injected
hbg stable 7.7
ok to increase to soft, cardiac diet
cont PPI BID on discharge transition to Protonix 40mg BID x 8 week and continue carafate BID
Dr. Simms and I reviewed with patent about OP follow up with bariatric surgery to discuss surgical revision with large ulcer-- Dr. Villar added to discharge -- copy of EGD given to patient
ok to resume Eliquis today will need close watch of hbg and stools
repeat LFT's as add on to ensure improving -- may be related to periods of hypotension as initially normal on admiss
Assessment / Plan
-
Pt is a 79yo with hx breast CA with prior mastectomy, radiation , HTN, hyperlipidemia, CVA, colon polyps, pancreatic atrophy per imaging, CAD with prior CABG,bioprosthetic AVR, NIDDM, gastric bypass- cristiana en y with prior anatomic ulcer with
several recent admission to [facility] with syncope. Several imaging studies with concern for continued anastomotic ulcer and noted with hbg 6.7 after admission. On admission was noted with rapid afib/flutter with TET/CV
01/17 with asystole with need for atropine and compression with ROSC and intubation required with now extubation. She went pacer 01/19 and then EGD 01/20 as noted with concern for A gastrojejunostomy ulceration was found with 2 cratered ulcers
with hemospray. Pt also noted with LFT's elevation after admission possible shock liver with hypotension.
01/20/25 EGD - Z-line regular- 4 cm hiatal hernia. - Multiple gastric polyps. - Erythematous and atrophic mucosa in the gastric body. - A gastrojejunostomy was found, characterized by an intact staple line and ulceration -
Two non-bleeding cratered ulcers one measured approximately 5 mm clean based, with a larger 2/3rd circumferential cratered ulcer with a flat pigmented spot (Dieter Class IIc) Hemostatic spray applied. Injected No specimens collected.
12/28/24 - [facility]- CT chst/ad/pelvis with IV coronary calcification, calcification of mitral valve annulus, scattered low attenuation hepatic lesions, s/p ema, stable biliary dilatation T/c MRI, pancreas stable, nodular thickening adrenal gland,
horseshoe kidney, suboptimal gastric and bowel without contrast no SBO cristiana en y bypass,mild wall thickening/edema at gastrojejunal anastomosis clinical query for marginal ulcer, hysterectomy, no ascites or free air, degenerative changes and bone
demineralization, prior sternotomy, old rib fx partial visualized with femoral jocelyn and screw
12/30/24- [facility] MRI abdomen with and without severe intrahepatic and extrahepatic biliary ductal dilatation, no choledocholithiasis non specific, horseshoe kidney
01/17- CT A/p vision report ema, prominent dilated CBD up to 2 cm tapering slightly to 1.2 cm near ampulla with moderate intrahepatic biliary ductal dilation possible post ema changes. Pancreas mild diffuse atrophy, gastric bypass with wall
thickening of stomach and gastrojejunostomy with adjacent fat standing concerning for gastritis with appearance of small ulcer projecting superiorly at GJ junction. No abscess or free air no bowel obstruction. mild sigmoid diverticulosis without
diverticulitis. appe, Unremarkable adrenal ans spleen. Horseshoe kidney no hypo in b/l renal moieties. areas of cortical scarring without b/l rnal moieties. bladder partially distended and unremarkable. hysterectomy, prominent vascular
calcification, no AAA or dissection, femur jocelyn, moderate DDD
-anemia
-EGD with large anastomic ulcer 01/20 with treatment as also noted in prior imaging
-concern for near syncope with aflutter with rapid rate s/p CV with asystole and ROSC
-s/p pacer 01/19
-abdominal pain with mild guarding on admission now improving
-recent LFT elevation with neg MRI for stone with biliary dilatation with some elevation this admission
-leukocytosis - resolved
-recent wt loss
other med problems:
breast CA with prior mastectomy, radiation , HTN, hyperlipidemia, CVA, colon polyps, pancreatic atrophy per imaging, CAD with prior CABG,bioprosthetic AVR, NIDDM, gastric bypass- cristiana en y
PLAN
Etiology of abdominal pain with concern for anatomic ulcer -as noted on EGD
s/p treatment with hemospray and injected
hbg stable 7.7
ok to increase to soft, cardiac diet
cont PPI BID on discharge transition to Protonix 40mg BID x 8 week and continue carafate BID
Dr. Simms and I reviewed with patent about OP follow up with bariatric surgery to discuss surgical revision with large ulcer-- Dr. Villar added to discharge -- copy of EGD given to patient
ok to resume Eliquis today will need close watch of hbg and stools
repeat LFT's as add on to ensure improving -- may be related to periods of hypotension as initially normal on admission
Subjective
Subjective
Date of Service: January 21, 2025
01/20 brown stools on clear diet but advancing to soft diet this am, 01/19 brown/burgundy stool then 01/20 brown stool
Objective
Data Reviewed
Laboratory Data:
Laboratory Results
01/21/25 04:13
01/21/25 04:13
Laboratory Results
PT 16.6 Sec (11.4-14.6) H 01/17/25 15:52
INR 1.32 01/17/25 15:52
APTT 34.0 Sec (23.4-35.0) 01/19/25 04:07
Phosphorus 2.2 mg/dl (2.5-4.5) L 01/19/25 04:07
Magnesium 1.9 mg/dl (1.6-2.3) 01/20/25 03:31
Total Bilirubin 0.3 mg/dl (0.2-1.3) 01/18/25 04:30
AST 100 U/L (14-36) H 01/18/25 04:30
ALT 57 U/L (0-35) H 01/18/25 04:30
Alkaline Phosphatase 131 U/L (38-126) H 01/18/25 04:30
Lipase 147 U/L (23-300) 01/16/25 19:12
Vital Signs and I&O:
Vital Signs
Temp Pulse Resp BP Pulse Ox
97.6 F 85 16 131/76 97
01/21/25 07:25 01/21/25 07:25 01/21/25 07:25 01/21/25 07:25 01/21/25 07:25
I&O
01/20/25 01/21/25 01/22/25
06:59 06:59 06:59
Intake Total 1340 / 1340 240 / 240
Output Total 1250 / 1250 400 / 400
Balance 90 / 90 -160 / -160
Physical Exam
Physical Exam
HEENT: Anicteric and Moist mucous membranes
Cardiology: Normal Sinus Rhythm
Pulmonary: Clear
GI: Soft, Non Distended and Non Tender
Neuro: Non Focal
[2025-01-21 10:33] LABS: ALT (SGPT) 36 U/L (0-35); AST (SGOT) 21 U/L (14-36); Albumin 2.5 g/dl (3.5-5.0); Alkaline Phosphatase 157 U/L (38-126); Total Protein 4.9 g/dl (6.3-8.2)
[2025-01-21] MEDS: ELIQUIS 5 MG PO (11:08)
[2025-01-21 11:20] VITALS: BP 145/78
--- NOTE | 2025-01-21 11:21 | W.PN.HOSP.TC ---
Addendum entered and electronically signed by Brett Humphries MD 01/31/25 14:19:
Yes, multiple left rib fracture are related to/associated with/due to chest compression and cardiopulmonary resuscitation
Original Note:
Today's Communication/Plan
-
d/c
Assessment / Plan
Assessment / Plan
Gen: remains NAD, Awake and alert
Eyes: EOMI, PERRLA, no scleral icterus.
Neck: supple.
CV: remains RRR, +S1/S2, no m/r/g.
Resp: remains CTAB anteriorly, no rales, wheezes, or rhonchi.
Skin: No rashes.
Neuro: CN 2-12 intact, non-focal.
Psych: Normal mood and affect.
01/17 TTE:
1. Normal biventricular size and systolic function, with no regional wall motion abnormalities. Estimated LVEF 60-65%.
2. History of bio-prosthetic aortic valve replacement. Peak/mean gradients across the aortic valve are 25/17 mmHg respectively. No aortic valve regurgitation seen.
3. Moderate tricuspid regurgitation.
4. No prior study available for comparison.
01/17 ROSITA:
1. Normal left ventricular size, wall thickness and systolic function. Estimated LVEF 50-55%.
2. S/p bio-prosthetic aortic valve replacement. No aortic regurgitation.
3. Moderate tricuspid regurgitation.
4. No thrombus in ANGELA.
5. We then proceeded to DCCV.
EGD 01/20/25:
- Z-line regular.
- 4 cm hiatal hernia.
- Multiple gastric polyps.
- Erythematous and atrophic mucosa in the gastric body.
- A gastrojejunostomy was found, characterized by an intact staple
line and ulceration.
- Non-bleeding jejunal ulcers with a flat pigmented spot (Dieter
Class IIc) Hemostatic spray applied. Injected.
- No specimens collected.
Abdominal pain and associated nausea:
-for 3-4 weeks
-EGD above, notable for ulceration of gastrojejunostomy anastomosis, nonbleeding jejunal ulcers
-pt needs surgical eval (outpt as long as Hb remains stable) for revision of gastrojejunostomy
-was on PPI gtt, now on PPI IV BID
-cont Carafate
-GI following
-diet advanced to solid/cholesterol lowering today
-Hb stable, resume Eliquis today as per GI
Aflutter with RVR (typical, unknown type):
-9AM called to bedside urgently by RN. Pt hadgiven Adenosine x 2 without resolution of tachycardia prior to my arrival M. ECG reviewed with cardiology, currently aflutter with RVR. The pt had been noncompliant with Eliquis. s/p 3L NS. Pt
taken for TEECV on 01/17, ANGELA without thrombus, and after 50J had asystole. Given IV Atropine without ROSC. After CPR and epi x 1 ROSC was achieved. Pt transferred to ICU at that time intubated.
-TTE and ROSITA above
-s/p PPM 01/19
-was on heparin gtt, now on Eliquis
-cards following
Acute hypoxemic resp failure:
-intubated 01/17 as above, extubated 12/10PM
-Non-AG met acidosis persists but overall improved
Other problems:
CKD3a
Hyponatremia, mild
Leukocytosis, resolved, was likely reactive
h/o Breast CA
PUD: cont PPI
Patient's daughter updated over the phone at length on 01/20/25.
Of note the patient has been to multiple hospitals recently and I encouraged the patient on 01/17 to pick one health system and stick with it.
FULL/Eliquis
Medically cleared for d/c.
Total time spent on d/c = 33 min. This included today's physical exam, progress note, review of laboratory and diagnostic data, preparation of discharge documents and prescriptions, and discussions about the pt's hospital course and discharge plan
with the patient and other pediatrician/medical doctor involved in the patient's care.
Anticipated Discharge: Today
Subjective/Interval History
-
Date of Service: January 21, 2025
c/o CP (related to CPR)
Objective Data
-
Labs:
Laboratory Results
01/21/25
04:13
WBC 9.5
Hgb 7.7 L
Hct 24.0 L
Plt Count 182
Sodium 135
Potassium 4.0
Chloride 109 H
Carbon Dioxide 22
BUN 10
Creatinine 1.2 H
Glucose 102 H
Calcium 8.5
Total Bilirubin 0.6
AST 21
ALT 36 H
Alkaline Phosphatase 157 H
Vital Signs:
Vital Signs
Temp Pulse Resp BP Pulse Ox
97.6 F 85 16 131/76 97
01/21/25 07:25 01/21/25 07:25 01/21/25 07:25 01/21/25 07:25 01/21/25 07:25
I&O
01/20/25 01/21/25 01/22/25
06:59 06:59 06:59
Intake Total 1340 / 1340 240 / 240
Output Total 1250 / 1250 400 / 400
Balance 90 / 90 -160 / -160
[2025-01-21] MEDS: LANOXIN 125 MCG PO (12:06)
[2025-01-21 12:24] LABS: Glucose - Point of Care 171 mg/dl (70-99)
[2025-01-21] MEDS: NOVOLOG FLEXPEN-LOW RESISTANCE 1 UNITS SC (12:33)
[2025-01-21] MEDS: DILAUDID 0.25 MG IV (12:33)
--- NOTE | 2025-01-21 13:40 | W.DCSUMMARY ---
Discharge Summary
Discharge Data
Date of Admission: 01/17/25
Date of Discharge: 01/21/25
-
Pending Results: No
Hospital Course
Primary diagnoses:
Abdominal pain likely due to ulceration of the the gastrojejunostomy anastomosis
Atrial flutter with a rapid ventricular response
Pacemaker implant
Acute hypoxemic respiratory failure requiring intubation
Secondary diagnoses:
None anion gap metabolic acidosis
Chronic kidney disease 3a
Hyponatremia
Leukocytosis, likely reactive
h/o Breast cancer
Peptic ulcer disease
Consultants:
Cardiology
Gastroenterology
Critical care
Imaging:
01/17 TTE:
1. Normal biventricular size and systolic function, with no regional wall motion abnormalities. Estimated LVEF 60-65%.
2. History of bio-prosthetic aortic valve replacement. Peak/mean gradients across the aortic valve are 25/17 mmHg respectively. No aortic valve regurgitation seen.
3. Moderate tricuspid regurgitation.
4. No prior study available for comparison.
01/17 ROSITA:
1. Normal left ventricular size, wall thickness and systolic function. Estimated LVEF 50-55%.
2. S/p bio-prosthetic aortic valve replacement. No aortic regurgitation.
3. Moderate tricuspid regurgitation.
4. No thrombus in ANGELA.
5. We then proceeded to DCCV.
EGD 01/20/25:
- Z-line regular.
- 4 cm hiatal hernia.
- Multiple gastric polyps.
- Erythematous and atrophic mucosa in the gastric body.
- A gastrojejunostomy was found, characterized by an intact staple
line and ulceration.
- Non-bleeding jejunal ulcers with a flat pigmented spot (Dieter
Class IIc) Hemostatic spray applied. Injected.
- No specimens collected.
79-year-old female presented with a chief complaint of abdominal pain as outlined in the H&P done on admission. Hospital course by problem list:
Abdominal pain likely due to ulceration of the the gastrojejunostomy anastomosis: The patient had had abdominal pain with associated nausea for 3-4 weeks. Patient was placed on a Protonix drip. EGD above, notable for ulceration of gastrojejunostomy
anastomosis, nonbleeding jejunal ulcers.the patient will need outpatient surgical for revision of gastrojejunostomy. The patient's daughter was informed about this over the phone. She was transition to Protonix twice daily. She was treated with
Carafate. Her diet was advanced and she was tolerating solid food at the time of discharge. Her hemoglobin remained stable and her Eliquis was resumed as per the recommendations of gastroenterology
Aflutter with RVR (typical, unknown type): On M I was called to bedside urgently by RN. The patient had been given Adenosine x 2 without resolution of tachycardia prior to my arrival M. ECG reviewed with cardiology and was aflutter with
RVR. The patient had been noncompliant with Eliquis prior to admission. She received 3L NS. The patient was taken for TEECV on 01/17, ANGELA without thrombus, and after 50J had asystole. She was given IV Atropine without ROSC. After CPR and epi x 1
ROSC was achieved. Pt transferred to ICU at that time intubated. She was extubated 12/10PM. Echocardiogram as above. The patient had a pacemaker placed on 01/19. The patient was on a heparin drip and was placed back on Eliquis at the time of
discharge.
Discharge Plan
-
Patient Disposition: Home with Home Care
Discharge Diagnosis/Procedures: Abdominal pain likely due to ulceration of the the gastrojejunostomy anastomosis, atrial flutter with a rapid ventricular response, pacemaker implant
Condition: Good
Diet: Low Cholesterol
Activity: As tolerated
Driving Restrictions: Not until seen by your Dr
Bathing Restrictions: OK to Shower
Blood Work: CMP and CBC in 3 to 4 days, prescription from PCP
Other Services: VN
Stand Alone Forms: DC Inst - Implanted Device
Referrals:
[facility] [Provider Group] - 01/27/25 11:20 am
Referral Note: Incision check appointment
Patrick Kumar MD [Non-Admitting Privileges, Surgical]
Referral Note: follow up with Dr. Kumar or other bariatric surgeon to discuss revision with large ulcer at prior surgical site.
Sergio Morris DO [Family Provider, [facility]] - in two to three days
Prescriptions:
New
metoprolol succinate 50 mg Tablet Extended Release 24 Hr
50 mg PO DAILY Qty: 30 0RF
sucralfate 100 mg/mL Suspension
1 g PO QID Qty: 400 0RF
digoxin 125 mcg (0.125 mg) Tablet
125 mcg PO NOON Qty: 30 0RF
lidocaine 5 % adhesive patch,medicated
1 patch topical DAILY Qty: 30 0RF
pantoprazole [Protonix] 40 mg tablet,delayed release (DR/EC)
40 mg PO BID Qty: 60 0RF
Continued
Eliquis 5 mg Tablet
5 mg PO BID
Prolia 60 mg/mL Syringe
60 mg SC [id number]
Jardiance 10 mg Tablet
10 mg PO DAILY
letrozole 2.5 mg Tablet
2.5 mg PO DAILY
pantoprazole 40 mg Tablet,Delayed Release (Dr/Ec)
40 mg PO DAILY
rosuvastatin 20 mg Tablet
20 mg PO DAILY
oxycodone 5 mg Tablet
5 mg PO BIDPRN PRN (Reason: severe pains)
Discontinued
metoprolol tartrate 25 mg Tablet
25 mg PO TID
sucralfate 1 gram Tablet
1 g PO AC
lisinopril 2.5 mg Tablet
2.5 mg PO DAILY
Discharge Orders:
Discharge Patient (As Directed); Ordered 01/21/25
Ordered By: Brett Humphries
Discharge Date and Time
Print Language: MALTESE
--- NOTE | 2025-01-21 13:44 | CM ---
CM reviewed chart, patient seen bedside, on facetime with son.
Patient for d/c today, confirms transport home.
Update to [facility] on d/c.
CM will continue to follow.
Plan; home with [facility] VN
Samuel Renner
--- NOTE | 2025-01-21 13:47 | W.PN.CD ---
Today's Communication / Plan
-
eliquis 5mg bid resumed today
continue digoxin 125 mcg daily and Toprol XL 50mg daily
CBC next week
follow up in device clinic arranged
please call us with additional questions
reviewed with daughter over phone
Impression / Plan
-
Background: 79F with atrial fibrillation/flutter (type unknown, noncompliant with apixaban), coronary artery disease s/p CABG, type 2 diabetes mellitus, not requiring insulin, CKD, and hypercholesterolemia presented to the emergency department with
a chief complaint of abdominal pain with AF/FL with EKG showing typical atrial flutter
Primary clinical science liaison: Dr. Duncan Schwartz ([place])
Typical atrial flutter--now in sinus rhythm
-eliquis 5mg bid resumed today
-continue digoxin 125 mcg daily and Toprol XL 50mg daily
Atrial fibrillation, suspected persistent
ROSITA/DCCV 01/17/25 , tele stable, [employer]
Nonischemic myocardial injury, peak troponin 1.5 on 01/18/2025
Long sinus arrest post cardioversion => Sick sinus => pacemaker 01/19/2025
PPM site with dressing intact , no hematoma
Had been Noncompliant with apixaban
LBBB
Pacemaker placed 01/19/2025, [employer], conduction system
By echo report: Hx of Bio AVR
Prior cholecystectomy
Prior gastric bypass
Anemia, type unknown (B12/folate 01/17/2025 look OK)
CAD, s/p CABG, see last cath below
CKD, per outside records her baseline creatinine is 1.3�1.4
Type 2 diabetes mellitus, per primary service
Prior breast cancer, s/p XRT and chemotherapy
Hypercholesterolemia, rosuvastatin on hold with abdominal pain
DATA:
Pacemaker placed 01/19/2025, [employer], conduction system
Echo :
SUMMARY
1. Normal biventricular size and systolic function, with no regional wall motion abnormalities. Estimated LVEF 60-65%.
2. History of bio-prosthetic aortic valve replacement. Peak/mean gradients across the aortic valve are 25/17 mmHg respectively. No aortic valve regurgitation seen.
3. Moderate tricuspid regurgitation.
4. No prior study available for comparison.
CT abd/pelvis with IV contrast 01/16/2025:
1. There is thickening of the stomach and in the area of the gastrojejunostomy with findings suggesting gastritis and a possible small ulcer at the level of the gastrojejunostomy.
2. There is marked distention of the intrahepatic biliary ducts as well as the common bile duct. This could be related to previous cholecystectomy. Correlation with liver function tests is recommended.
ROSITA 01/17/2025
SUMMARY
1. Normal left ventricular size, wall thickness and systolic function. Estimated LVEF 50-55%.
2. S/p bio-prosthetic aortic valve replacement. No aortic regurgitation.
3. Moderate tricuspid regurgitation.
4. No thrombus in ANGELA.
5. We then proceeded to [facility].
Transthoracic echocardiogram, 12/29/2024 (Dr. Siddiqui, [facility]): LVEF 50%. Grade 1 DD. Mildly dilated LA. Mild aortic valve stenosis. Normal RV systolic function.
Coronary angiography, 01/06/2025 (Dr. Mtz, [facility]):
Well compensated CAD with widely patent bypass grafts to the LAD and RCA territories.
Several minor branch vessels of the circumflex territory are collateralized and do not receive flow from the bypass graft and are best served by medical therapy.
LANCE�LAD widely patent. In the mid and far distal portion of the vessel there were mild to moderate nonflow-limiting focal stenosis of up to 50%.
SVG to the first major posterolateral branch is widely patent.
SVG to circumflex territory is 100% occluded at the ostium
Physical Exam
Vital Signs/Labs
Vital Signs
Temp Pulse Resp BP Pulse Ox
98.4 F 87 18 145/78 97
01/21/25 11:20 01/21/25 11:20 01/21/25 11:20 01/21/25 11:20 01/21/25 11:20
01/20/25 01/21/25 01/22/25
06:59 06:59 06:59
Actual Weight 76.2 kg
01/21/25 04:13
01/21/25 04:13
PT 16.6 Sec (11.4-14.6) H 01/17/25 15:52
INR 1.32 01/17/25 15:52
APTT 34.0 Sec (23.4-35.0) 01/19/25 04:07
Magnesium 1.9 mg/dl (1.6-2.3) 01/20/25 03:31
Triglycerides Cancelled 01/17/25 16:03
LAB Results
01/19/25
04:07
Troponin I 0.819 H*
Physical Exam
Constitutional: No acute distress and Comfortable
EENT: Moist mucous membranes
Cardiovascular: Rhythm & rate is regular, Pedal edema is absent, JVD pressure is normal and Systolic murmur present
Respiratory: Respiratory effort normal and Lungs clear to auscul.
Neuro/Psych: AO x 3
Data Reviewed
-
Date of Service: January 21, 2025
EKG: Other (Tele: AsVp 80s)
Labs: Labs Reviewed by me
[2025-01-21 14:37] VITALS: BP 132/73
== END 2025-01-21 17:24 | disposition home health service (06) | DRG 242 ==
LOC: 4 WEST ACU 01:55
PROVIDERS: Emergency Medicine; Internal Medicine; Internal Medicine Cardiovascular Disease; Nurse Practitioner Adult Health; Nurse Practitioner Gerontology; Nurse Practitioner Primary Care; ADMITTING PHYSICIAN Hospitalist; ATTENDING PHYSICIAN Internal Medicine; CONSULT PHYSICIAN Internal Medicine; CONSULT PHYSICIAN Student in an Organized Health Care Education/Training Program; EMERGENCY PHYSICIAN Emergency Medicine; FAMILY PHYSICIAN Family Medicine Adult Medicine; OTHER PHYSICIAN Internal Medicine Critical Care Medicine
PROC: 5A1935Z Respiratory Ventilation, Less than 24 Consecutive Hours (ICD-10-PCS; 2025-01-17)
PROC: B24BZZ4 Ultrasonography of Heart with Aorta, Transesophageal (ICD-10-PCS; 2025-01-17)
PROC: 0BH17EZ Insertion of Endotracheal Airway into Trachea, Via Natural or Artificial Opening (ICD-10-PCS; 2025-01-17)
PROC: 5A2204Z Restoration of Cardiac Rhythm, Single (ICD-10-PCS; 2025-01-17)
PROC: 5A12012 Performance of Cardiac Output, Single, Manual (ICD-10-PCS; 2025-01-17)
PROC: 02HK3JZ Insertion of Pacemaker Lead into Right Ventricle, Percutaneous Approach (ICD-10-PCS; 2025-01-19)
PROC: 02H63JZ Insertion of Pacemaker Lead into Right Atrium, Percutaneous Approach (ICD-10-PCS; 2025-01-19)
PROC: 3E0102A Introduction of Anti-Infective Envelope into Subcutaneous Tissue, Open Approach (ICD-10-PCS; 2025-01-19)
PROC: 0JH606Z Insertion of Pacemaker, Dual Chamber into Chest Subcutaneous Tissue and Fascia, Open Approach (ICD-10-PCS; 2025-01-19)
PROC: 3E0G8GC Introduction of Other Therapeutic Substance into Upper GI, Via Natural or Artificial Opening Endoscopic (ICD-10-PCS; 2025-01-20)
DX: I48.3 Typical atrial flutter (principal); J96.01 Acute respiratory failure with hypoxia; R57.1 Hypovolemic shock; R57.0 Cardiogenic shock; E87.1 Hypo-osmolality and hyponatremia; E87.20 Acidosis, unspecified; I5A Non-ischemic myocardial injury (non-traumatic); M96.A3 Multiple fractures of ribs associated with chest compression and cardiopulmonary resuscitation; I12.9 Hypertensive chronic kidney disease with stage 1 through stage 4 chronic kidney disease, or unspecified chronic kidney disease; I46.2 Cardiac arrest due to underlying cardiac condition; I47.10 Supraventricular tachycardia, unspecified; N18.31 Chronic kidney disease, stage 3a; I44.7 Left bundle-branch block, unspecified; E78.00 Pure hypercholesterolemia, unspecified; I48.0 Paroxysmal atrial fibrillation; I49.5 Sick sinus syndrome; K25.9 Gastric ulcer, unspecified as acute or chronic, without hemorrhage or perforation; I45.5 Other specified heart block; K21.9 Gastro-esophageal reflux disease without esophagitis; D72.829 Elevated white blood cell count, unspecified; I25.10 Atherosclerotic heart disease of native coronary artery without angina pectoris; E11.22 Type 2 diabetes mellitus with diabetic chronic kidney disease; D63.1 Anemia in chronic kidney disease; R13.10 Dysphagia, unspecified; K59.00 Constipation, unspecified; K44.9 Diaphragmatic hernia without obstruction or gangrene; K31.7 Polyp of stomach and duodenum; K31.89 Other diseases of stomach and duodenum; Z98.0 Intestinal bypass and anastomosis status; Z95.1 Presence of aortocoronary bypass graft; Z91.148 Patient's other noncompliance with medication regimen for other reason; Z79.01 Long term (current) use of anticoagulants; Z85.3 Personal history of malignant neoplasm of breast; Z98.84 Bariatric surgery status; Z92.3 Personal history of irradiation; Z86.73 Personal history of transient ischemic attack (TIA), and cerebral infarction without residual deficits; Z95.3 Presence of xenogenic heart valve; Z11.52 Encounter for screening for COVID-19; Z87.891 Personal history of nicotine dependence
CPT/HCPCS: 33208; 36600; 71045; 74177; 80048; 80053; 81003; 81015; 82010; 82248; 82607; 82746; 82805; 82962; 83036; 83605; 83690; 83735; 84100; 84443; 84478; 84484; 85014; 85018; 85025; 85027; 85610; 85730; 86850; 86900; 86901; 87040; 87086; 87502; 87811; 92960; 93005; 93308; 93312; 93320; 93321; 93325; 94002; 94003; 96374; 96375; 97163; 97167; 99285; C1769; C1785; C1887; C1898; J0153; J1160; Q9967